=== PATIENT | female | born 1950 | race Caucasian/White ===

== ENCOUNTER → 2018-02-01 07:35 | Outpatient (CLI) | payer MEDICARE, OTHER, SELFPAY ==
[2018-02-01 11:26] LABS: Add Manual Diff / Slide Review NO; Basophils Percent Auto 0.1 % (0-2); Eosinophils Percent Auto 2.1 % (2-4); Hematocrit 41.5 % (36-46); Hemoglobin 13.7 g/dL (12.0-16.0); Lymphocytes Percent Auto 17.7 % (25-40); Mean Corpuscular HGB Conc 33.1 % (30-36); Mean Corpuscular Hemoglobin 28.1 PG (26-34); Mean Corpuscular Volume 84.8 fL (80-100); Monocytes Percent Auto 9.6 % (3-14); Neutrophils Absolute Auto 3900 /uL (3000-5900); Neutrophils Percent Auto 70.5 % (50-75); Platelet Count 258 X10^3/uL (150-400); Red Blood Cell Count 4.89 X10^6/uL (4.0-5.2); Red Cell Distribution Width 14.9 % (11.6-14.8); White Blood Cell Count 5.5 X10^3/uL (4.5-11.0)
[2018-02-01 11:39] LABS: Alanine Aminotransferase 48 IU/L (9-52); Albumin 4.1 g/dL (3.5-5.0); Albumin Globulin Ratio 1.5 (1.0-2.8); Alkaline Phosphatase 81 U/L (38-126); Aspartate Aminotransferase 37 IU/L (14-36); BUN Creatinine Ratio 18.6 (6-22); Bilirubin Total 0.5 mg/dL (0.2-1.3); Blood Urea Nitrogen 13 mg/dL (7-17); Calcium 9.3 mg/dL (8.4-10.2); Carbon Dioxide 28 mmol/L (22-32); Chloride 104 mmol/L (98-107); Cholesterol 221 mg/dL (140-199); Estimated Glomerular Filt Rate > 60.0 mL/min (>60); Globulin 2.8 g/dL (1.7-4.1); Glucose 85 mg/dL (80-110); HDL Cholesterol 51 mg/dL (40-60); HEMOLYSIS < 15 (0-50); LDL Cholesterol Calculated 151 mg/dL (<100); Potassium 3.7 mmol/L (3.4-5.1); Sodium 144 mmol/L (137-145); Total Protein 6.9 g/dL (6.3-8.2); Triglycerides 95 mg/dL (35-150)
[2018-02-01 12:06] LABS: Thyroid Stimulating Hormone 0.28 uIU/mL (0.47-4.68)
== END ==
PROVIDERS: PCP Family Medicine; Visit Provider Family Medicine
DX: E03.9 Hypothyroidism, unspecified (principal)
CPT/HCPCS: 36415; 80053; 80061; 84443; 85025

== ENCOUNTER → 2018-04-21 09:11 | Outpatient (CLI) | payer MEDICARE, OTHER, SELFPAY ==
[2018-04-21 09:51] LABS: Erythrocyte Sedimentation Rate 6 MM/HR (0-20)
[2018-04-21 09:54] LABS: C-Reactive Protein Quant < 0.5 mg/dL (<1.0)
[2018-04-21 10:32] LABS: TSH w/ Reflex to FT4 0.92 uIU/mL (0.47-4.68)
== END ==
PROVIDERS: Family Provider Family Medicine; PCP Family Medicine; Visit Provider Physician Assistant
DX: M26.69 Other specified disorders of temporomandibular joint (principal); E03.9 Hypothyroidism, unspecified
CPT/HCPCS: 36415; 84443; 85651; 86140

== ENCOUNTER 2018-09-17 10:02 | Emergency (ER) | payer MEDICARE, OTHER, SELFPAY ==
[2018-09-17 10:32] VITALS: BP 126/66; PULSE 58; RESP 18; TEMP 36.8; O2SAT 96
--- NOTE | 2018-09-17 11:54 | PC.NURSE ---
pt reports, has been loading the boat for a trip to [place]. yesterday with alot lifting,bending,twisting has methocarbimol meds dated 2017. now pt reports, lumbar pain, denies radiating pain or bowel/bladder issue. denies fever,vomiting. also has been doing gentle yoga.
--- NOTE | 2018-09-17 12:06 | ED.BACK ---
HPI - Back Pain/Injury <Michelle Alvarado PA-C - Last Filed: 09/17/18 15:50> General Chief Complaint: Back Pain/Injury Stated Complaint: Back spasms Time Seen by Provider: 09/17/18 12:06 Source: patient Limitations: no limitations History of Present Illness HPI Narrative: This 68-year-old female complains of low back pain. She has been loading there boat for a big trip to [place] and doing some heavy lifting. She states that she bent over yesterday and then felt strain and soreness when she strained back up. She states that she gets similar symptoms every couple of years, started taking leftover Robaxin and it does help her. She is also taking ibuprofen. She denies any weakness or paresthesia in her extremities. Denies any groin numbness, difficult to urinate, bowel changes. She denies any new rash or fever and feels that this is similar to her previous symptoms. Pain is across her low back, does not radiate down the extremities. Related Data Home Medications Medication Instructions Recorded Confirmed calcium carbonate-vitamin D3 1 tab PO #0 06/03/16 04/21/18 coQ10 (ubiquinol) [Active Q] 200 mg PO #0 06/03/16 04/21/18 Previous Rx's Medication Instructions Recorded varicella-zoster glycoE [id number]-[id number] 0.5 ml IM ONCE #1 each 02/02/18 adj(PF) 50 mcg/0.5 mL IM susp, kit levothyroxine 88 mcg tablet 88 mcg PO QAM #90 tab 07/13/18 lidocaine [Lidoderm] 2 patch TOP DAILY #30 each 09/17/18 methocarbamol [Robaxin] 500 mg PO Q6H PRN #40 tab 09/17/18 Allergies Allergy/AdvReac Type Severity Reaction Status Date / Time aspirin [ASPIRIN] Allergy Unknown Verified 04/21/18 08:18 surgical tape Allergy Unknown Uncoded 08/11/17 12:41 Review of Systems <TEMO Rowe Last Filed: 09/17/18 15:50> Review of Systems ROS Unobtainable: All systems reviewed & are unremarkable except as noted in HPI and below PFSH <TEMO Rowe Last Filed: 09/17/18 15:50> Medical History History of urinary incontinence (Chronic) Hypothyroidism (Chronic) Vertigo (Chronic ~1999) Vision disorder (Chronic) Chicken pox (Resolved) History of CT scan (Resolved ~04/2015) History of MRI (Resolved ~12/2009) History of MRI of brain and brain stem (Resolved ~12/2009) History of stress test (Resolved ~04/2015) Measles (Resolved) Mumps (Resolved) Sarcoidosis (Resolved ~2006) Surgical History Anesthesia (Resolved) Status post appendectomy (~04/1991) Status post biopsy (~04/2007) Status post colonoscopy (~04/2009) Status post endoscopy (~08/2003) Status post hysterectomy (~04/1991) Status post laparoscopy (~08/2004) Family History Father Heart disease Hypertension High cholesterol Stroke Diabetes mellitus Grandfather No problems noted. Grandmother No problems noted. Mother No problems noted. Grandmother No problems noted. Social History marital status: household members: spouse lives independently: Yes occupational status: other (retired) Smoking Status: Never smoker alcohol intake: current substance use type: does not use Social History marital status: household members: spouse lives independently: Yes occupational status: other (retired) Smoking Status: Never smoker alcohol intake: current substance use type: does not use Exam <Michelle Alvarado PA-C - Last Filed: 09/17/18 15:50> Narrative Exam Narrative: GENERAL APPEARANCE: Patient sitting comfortably, in no distress. PULMONARY: Lungs clear to auscultation bilaterally CV: Regular rhythm regular without murmur, normal S1 and S2, no S3 or S4 MUSCULOSKELETAL: No point tenderness over the lumbar spine. Mild tenderness across the mid to inferior lumbar musculature and SI areas bilaterally. She has trunk flexion to 60? with mild tenderness, near full trunk rotation and lateral bend with some and point tenderness. Normal sit:stand and gait. Lower extremity strength 5/5 bilateral hip flexors, knee extensors, foot plantar flexion. Negative modified straight leg raise NEUROLOGIC: Lower extremity sensation grossly intact Initial Vital Signs Initial Vital Signs: Vital Signs Temperature 98.3 F 09/17/18 10:32 Pulse Rate 58 L 09/17/18 10:32 Respiratory Rate 18 09/17/18 10:32 Blood Pressure 126/66 09/17/18 10:32 Pulse Oximetry 96 09/17/18 10:32 <Carolyn Mae DO - Last Filed: 09/17/18 18:54> Initial Vital Signs Initial Vital Signs: Vital Signs Temperature 98.3 F 09/17/18 10:32 Pulse Rate 58 L 09/17/18 10:32 Respiratory Rate 18 09/17/18 10:32 Blood Pressure 126/66 09/17/18 10:32 Pulse Oximetry 96 09/17/18 10:32 Course <Michelle Alvarado PA-C - Last Filed: 09/17/18 15:50> Vital Signs - 8 hr 09/17/18 12:29 Pulse Rate 58 L Respiratory Rate 18 Blood Pressure [Right Arm] 146/67 H Pulse Oximetry 100 <Carolyn Mae DO - Last Filed: 09/17/18 18:54> Vital Signs - 8 hr 09/17/18 12:29 Pulse Rate 58 L Respiratory Rate 18 Blood Pressure [Right Arm] 146/67 H Pulse Oximetry 100 Discharge Plan Departure Patient Disposition: Home Clinical Impression: Strain of lumbar region Qualifiers: Encounter type: initial encounter Qualified Code(s): S39.012A - Strain of muscle, fascia and tendon of lower back, initial encounter Discharge Date/Time: 09/17/18 12:32 Interventions: ED Discharge Assessment Last Done: 09/17/18 12:32 Instructions: DI for Low Back Pain, DI for Back Spasm, DI for Back Strain or Sprain Activity Restrictions/Additional Instructions: Please return or seek treatment while you are traveling if you have any acutely worsening symptoms such as inability to urinate or weakness in your extremities as we talked about. Otherwise, please continue the ibuprofen every 8 hours, or you can change to Aleve 1 tablet every 12 hours if that is easier. Continue the methocarbamol as needed, but do not drive as it can make you sleepy (you may want to try half tab during the day). I have also prescribed some lidocaine patches for you to try as you can wear these for 12 hours daily and they will make you sleepy. Have a fantastic voyage to [place]! Prescriptions: New methocarbamol [Robaxin] 500 mg tablet 500 mg PO Q6H PRN (Reason: back pain/spasm) Qty: 40 RF: 0 lidocaine [Lidoderm] 5 % adhesive patch,medicated 2 patch TOP DAILY Qty: 30 RF: 0 No Action calcium carbonate-vitamin D3 1,500 MG/200 IU tablet 1 tab PO Qty: 0 RF: 0 coQ10 (ubiquinol) [Active Q] 200 MG capsule 200 mg PO Qty: 0 RF: 0 levothyroxine 88 mcg tablet 88 mcg PO QAM Qty: 90 RF: 2 varicella-zoster gE-AS01B (PF) [Shingrix (PF)] 50 mcg/0.5 mL suspension for reconstitution 0.5 ml IM ONCE Qty: 1 RF: 1 Referrals: Meera Harris DO [Primary Care Provider] - <Carolyn Mae DO - Last Filed: 09/17/18 18:54> Cosign ED Attending Herminiaature Attestation: I was immediately available in the department for consultation. Documentation has been reviewed. I agree with assessment and plan.
[2018-09-17 12:29] VITALS: BP 146/67; PULSE 58; RESP 18; O2SAT 100
== END 2018-09-17 12:32 | disposition home or self-care (01) ==
PROVIDERS: Emergency Provider Internal Medicine; Family Provider Family Medicine; PCP Family Medicine
DX: S39.012A Strain of muscle, fascia and tendon of lower back, initial encounter (principal)
CPT/HCPCS: 99282; 99283

== ENCOUNTER → 2019-01-03 09:40 | Outpatient (CLI) | payer MEDICARE, OTHER, SELFPAY ==
--- NOTE | 2019-01-03 09:42 | DI.MG.S_ITS ---
BILATERAL DIGITAL SCREENING MAMMOGRAM 3D/2D WITH CAD: 01/03/2019 CLINICAL: Routine screening. Comparison is made to exams dated: 02/16/2017 mammogram - [facility], 06/05/2014 mammogram, and 05/22/2013 mammogram - [facility]. There are scattered fibroglandular elements in both breasts. Current study was also evaluated with a Computer Aided Detection (CAD) system. There are benign vascular calcifications in the right breast. No significant masses, calcifications, or other findings are seen in either breast. There has been no significant interval change. IMPRESSION: There is no mammographic evidence of malignancy. A 1 year screening mammogram is recommended. This exam was interpreted at Station ID: [id number]. NOTE: For mammograms, a report in lay terms will be sent to the patient. Approximately 15% of breast malignancies will not be visualized mammographically. In the management of a palpable breast mass, a negative mammogram must not discourage biopsy of a clinically suspicious lesion. Electronically Signed By: Kiarra tang/contreras:01/03/2019 11:33:39 letter sent: Normal Exam ACR BI-RADS Category 2: Benign Finding(s) [id number]
== END ==
PROVIDERS: PCP Family Medicine; Visit Provider Family Medicine
DX: Z12.31 Encounter for screening mammogram for malignant neoplasm of breast (principal)
CPT/HCPCS: 77063; 77067

== ENCOUNTER → 2019-02-07 08:24 | Outpatient (CLI) | payer MEDICARE, OTHER, SELFPAY ==
[2019-02-07 09:18] LABS: Add Manual Diff / Slide Review NO; Basophils Absolute Auto 0 /uL (0-100); Basophils Percent Auto 0.2 % (0-2); Eosinophils Absolute Auto 100 /uL (0-450); Eosinophils Percent Auto 2.5 % (2-4); Hematocrit 42.2 % (36-46); Hemoglobin 14.1 g/dL (12.0-16.0); Lymphocytes Absolute Auto 1300 /uL (1100-4500); Lymphocytes Percent Auto 24.2 % (25-40); Mean Corpuscular HGB Conc 33.5 % (30-36); Mean Corpuscular Hemoglobin 28.5 PG (26-34); Mean Corpuscular Volume 85.2 fL (80-100); Monocytes Absolute Auto 400 /uL (0-900); Monocytes Percent Auto 8.4 % (3-14); Neutrophils Absolute Auto 3400 /uL (1500-7000); Neutrophils Percent Auto 64.7 % (50-75); Platelet Count 234 X10^3/uL (150-400); Red Blood Cell Count 4.95 X10^6/uL (4.0-5.2); Red Cell Distribution Width 14.7 % (11.6-14.8); White Blood Cell Count 5.2 X10^3/uL (4.5-11.0)
[2019-02-07 09:50] LABS: Alanine Aminotransferase 40 IU/L (9-52); Albumin 4.2 g/dL (3.5-5.0); Albumin Globulin Ratio 1.4 (1.0-2.8); Alkaline Phosphatase 71 U/L (38-126); Aspartate Aminotransferase 36 IU/L (14-36); BUN Creatinine Ratio 18.6 (6-22); Bilirubin Total 0.5 mg/dL (0.2-1.3); Blood Urea Nitrogen 13 mg/dL (7-17); Calcium 9.9 mg/dL (8.4-10.2); Carbon Dioxide 30 mmol/L (22-32); Chloride 104 mmol/L (98-107); Cholesterol 206 mg/dL (140-199); Estimated Glomerular Filt Rate > 60.0 mL/min (>60); Globulin 3.1 g/dL (1.7-4.1); Glucose 104 mg/dL (80-110); HDL Cholesterol 54 mg/dL (40-60); HEMOLYSIS < 15 (0-50); LDL Cholesterol Calculated 133 mg/dL (<100); Potassium 4.4 mmol/L (3.4-5.1); Sodium 139 mmol/L (137-145); Total Protein 7.3 g/dL (6.3-8.2); Triglycerides 94 mg/dL (35-150)
[2019-02-07 10:21] LABS: Thyroid Stimulating Hormone 0.74 uIU/mL (0.47-4.68)
== END ==
PROVIDERS: PCP Family Medicine; Visit Provider Family Medicine
DX: E03.9 Hypothyroidism, unspecified (principal)
CPT/HCPCS: 36415; 80053; 80061; 84443; 85025

== ENCOUNTER 2019-03-07 17:18 | Emergency (ER) | payer MEDICARE, OTHER, SELFPAY ==
[2019-03-07 17:25] VITALS: BP 128/56; PULSE 53; RESP 15; TEMP 35.6; O2SAT 97; BMI 26.4
[2019-03-07] MEDS: ONDANSETRON 4 MG/2 ML INJ IV (17:37)
[2019-03-07] MEDS: SODIUM CHLORIDE 0.9% 1,000 ML 150 ML IV (17:37)
[2019-03-07 17:51] LABS: Add Manual Diff / Slide Review NO; Basophils Absolute Auto 0 /uL (0-100); Basophils Percent Auto 0.5 % (0-2); Eosinophils Absolute Auto 200 /uL (0-450); Eosinophils Percent Auto 2.3 % (2-4); Hematocrit 44.4 % (36-46); Hemoglobin 14.7 g/dL (12.0-16.0); Lymphocytes Absolute Auto 2100 /uL (1100-4500); Mean Corpuscular HGB Conc 33.2 % (30-36); Mean Corpuscular Hemoglobin 28.2 PG (26-34); Mean Corpuscular Volume 85.1 fL (80-100); Monocytes Absolute Auto 700 /uL (0-900); Monocytes Percent Auto 9.4 % (3-14); Neutrophils Absolute Auto 4800 /uL (1500-7000); Neutrophils Percent Auto 60.8 % (50-75); Platelet Count 260 X10^3/uL (150-400); Red Blood Cell Count 5.21 X10^6/uL (4.0-5.2); Red Cell Distribution Width 15.2 % (11.6-14.8); White Blood Cell Count 7.9 X10^3/uL (4.5-11.0)
[2019-03-07 18:00] VITALS: BP 124/54; PULSE 54; RESP 14; O2SAT 98
[2019-03-07 18:04] LABS: BUN Creatinine Ratio 26.7 (6-22); Blood Urea Nitrogen 16 mg/dL (7-17); Carbon Dioxide 25 mmol/L (22-32); Chloride 107 mmol/L (98-107); Estimated Glomerular Filt Rate > 60.0 mL/min (>60); Glucose 113 mg/dL (80-110); HEMOLYSIS 60 (0-50); Potassium 3.8 mmol/L (3.4-5.1); Sodium 141 mmol/L (137-145)
[2019-03-07] MEDS: diazePAM 10 MG/2 ML SYRINGE 2 MG IV (18:08)
[2019-03-07 18:16] LABS: Troponin I < 0.012 ng/mL (0.01-0.034)
--- NOTE | 2019-03-07 18:27 | ED_ITS ---
HPI - Dizziness <ANA CRISTINA Holt - Last Filed: 03/07/19 20:31> General Chief Complaint: Dizziness Stated Complaint: DIZZY Time Seen by Provider: 03/07/19 17:36 Source: patient Mode of arrival: Wheelchair Limitations: no limitations History of Present Illness HPI Narrative: This is a 68-year-old female, nonsmoker, who presents to ED with significant other with chief complain of vertigo, spinning sensation with vomiting. Patient felt starting onset of intermittent vertigo on Wednesday and and states she can't get rid of with her routine medication meclizine 0.5 tab of 25mg. Patient states when she is in supine position the dizziness gets better and gets worse with moving her head. The patient had headache a couple of days ago but this has resolved. Patient denies recent ear pain, URI symptoms. Patient denies limb weakness, speech difficulty, vision change, dysphagia, f ever. Her spouse states patient had similar severe vertigo about 5 and 10 years ago which she was evaluated in emergency room. Related Data Home Medications Medication Instructions Recorded Confirmed calcium carbonate-vitamin D3 1 tab PO #0 06/03/16 02/13/19 coQ10 (ubiquinol) [Active Q] 200 mg PO #0 06/03/16 02/13/19 Previous Rx's Medication Instructions Recorded varicella-zoster gE-AS01B (PF) 50 0.5 ml IM ONCE #1 each 02/02/18 mcg/0.5 mL IM susp, kit levothyroxine 88 mcg tablet 88 mcg PO QAM #90 tab 07/13/18 lidocaine [Lidoderm] 2 patch TOP DAILY #30 each 09/17/18 methocarbamol [Robaxin] 500 mg PO Q6H PRN #40 tab 09/17/18 meclizine 12.5 - 25 mg PO TID-QID PRN #14 tab 03/07/19 ondansetron 4 mg PO Q6-8H PRN #10 tab 03/07/19 Allergies Allergy/AdvReac Type Severity Reaction Status Date / Time aspirin [ASPIRIN] Allergy Unknown Verified 03/07/19 17:30 surgical tape Allergy Unknown Uncoded 08/11/17 12:41 Review of Systems <ANA CRISTINA Holt - Last Filed: 03/07/19 20:31> Review of Systems Narrative: General: Denies fever, chills, fatigue, malaise, sweats. HEENT: Denies sinus pain, ear pain, sore throat, difficulty swallowing, dizziness. Respiratory: Denies dyspnea, cough, wheezing, hemoptysis, sputum. Cardiovascular: Denies chest pain, palpitations, orthopnea, edema. Gastrointestinal: Reports nausea and vomiting. Denies abdominal pain, diarrhea, constipation, melena. : Denies dysuria, frequency, incontinence, hematuria, urinary retention. Musculoskeletal: Denies weakness, joint pain or bony pain. Skin: Denies rash, skin lesions, or other. Neurologic: Reports dizziness and spinning sensation. Denies weakness, headache, numbness, change in speech, confusion, seizures, incoordination. Psychiatric: No concerning psychosocial issues. 12-point review of systems is negative except for those stated above. Patient History <ANA CRISTINA Holt - Last Filed: 03/07/19 20:31> Medical History Chicken pox (Resolved) History of CT scan (Resolved ~04/2015) History of MRI (Resolved ~12/2009) History of MRI of brain and brain stem (Resolved ~12/2009) History of stress test (Resolved ~04/2015) History of urinary incontinence (Chronic) Hypothyroidism (Chronic) Measles (Resolved) Mumps (Resolved) Sarcoidosis (Resolved ~2006) Vertigo (Chronic ~1999) Vision disorder (Chronic) Surgical History Anesthesia (Resolved) Status post appendectomy (~04/1991) Status post biopsy (~04/2007) Status post colonoscopy (~04/2009) Status post endoscopy (~08/2003) Status post hysterectomy (~04/1991) Status post laparoscopy (~08/2004) Family History Father Heart disease Hypertension High cholesterol Stroke Diabetes mellitus Grandfather No problems noted. Grandmother No problems noted. Mother No problems noted. Grandmother No problems noted. Social History marital status: household members: spouse lives independently: Yes occupational status: other (retired) Smoking Status: Never smoker alcohol intake: current substance use type: does not use alcohol intake frequency: holidays/special occasions only Substance Use Type: does not use Exam <Herson ANA CRISTINA Erickson - Last Filed: 03/07/19 20:31> Narrative Exam Narrative: GEN: Alert, oriented x 3, well nourished, and in moderate distress as evidence by lying and right lateral side with eyes covered with her close. Head: Normal cephalic, atraumatic. No scalp or temporal tenderness, palpable mass or rash. EYES: Pupils are equal, round, and reactive to light and accommodation. Extraocular muscles are intact bilaterally but with nystagmus. There is no subconjunctival hemorrhage, exudate and sclera non-icteric. ENT: Bilateral auditory canals and tympanic membranes clear. Hearing grossly intact. Nose without bleeding, purulent discharge or deviation. Facial sinuses nontender to palpate. Mucous membrane moist, no mucosal lesion. Throat without erythema, tonsillar hypertrophy or exudate. Uvula in midline, airway patent. Neck: Trachea in midline. No JVD, non-tender without lymphadenopathy. No masses or thyroid megaly. Supple, non-tender and no meningeal signs. CARDIAC: Normal regular rate and rhythm without murmurs, gallops, or rubs. No chest wall tenderness. No peripheral edema, cyanosis or pallor. Capillary refill is less than 2 seconds. RESPIRATORY: Lungs are clear to auscultate bilaterally. No cough, wheezes, rales, or rhonchi. No stridor, respiratory distress, increase work of breathing, or accessary muscle used. ABD: Abdomen soft, nontender and non-distended. No guarding or rebound tenderness to palpate. Bowel sounds are normal in all 4 quadrants. There is no palpable masses or organomegaly. EXT: Full painless ROM of all extremities with no loss of sensation, strength, effusion or edema. SKIN: Warm, dry, normal color for patient. No erythema, lesions or rash over visible areas. BACK: Nontender without deformity or crepitance. No flank tenderness. NEUROLOGICAL: Alert and oriented to place, time and person. Sensation and motor function intact bilaterally. No facial droops, dysphasia. PSYCHIATRIC: Good judgement and reason, without hallucinations, abnormal affect or abnormal behaviors during the examination. Initial Vital Signs Initial Vital Signs: Vital Signs Temperature 96.0 F L 03/07/19 17:25 Pulse Rate 53 L 03/07/19 17:25 Respiratory Rate 15 03/07/19 17:25 Blood Pressure 128/56 L 03/07/19 17:25 Pulse Oximetry 97 03/07/19 17:25 <Evaristo Tse DO - Last Filed: 03/07/19 20:59> Initial Vital Signs Initial Vital Signs: Vital Signs Temperature 96.0 F L 03/07/19 17:25 Pulse Rate 53 L 03/07/19 17:25 Respiratory Rate 15 03/07/19 17:25 Blood Pressure 128/56 L 03/07/19 17:25 Pulse Oximetry 97 03/07/19 17:25 Scores <ANA CRISTINA Holt Last Filed: 03/07/19 20:31> GCS David coma scale eye opening: Spontaneous David coma scale verbal response: Orientated [place] coma scale motor response: Obey commands David coma scale total score: 15 NIH Stroke Scale Level of Conciousness: Alert, keenly responsive Ask month/age: Answers both questions correctly. Open/close eyes, close hand: Performs both tasks correctly Best gaze horizontal: Normal Visual martini: No visual loss Facial palsy: Normal symetrical movement Left arm drift: No drift for full 10 sec Right arm drift: No drift for full 10 sec Left leg drift: No drift for full 10 sec Right leg drift: No drift for full 10 sec Limb ataxia: Absent Sensory on face/arms/legs: Normal, no sensory loss Best language: No aphasia, normal Dysarthria: Normal Extinction or inattention: No abnormality Total NIH Stroke scale score: 0 Course <ANA CRISTINA Holt Last Filed: 03/07/19 20:31> Orders Ordered: ED Orders 03/07/19 17:45 Basic Metabolic Panel Stat Complete Blood Count AUTO DIFF Stat Troponin I Stat 03/07/19 17:54 EKG-12 Lead Stat Discontinued Medications Diazepam (Valium) 2 mg IV NOW ONE Stop: 03/07/19 17:49 Last Admin: 03/07/19 18:08 Dose: 2 mg Documented by: NIMESH Sodium Chloride (Normal Saline 0.9%) 1,000 mls @ 150 mls/hr IV CONT KEELY Last Infusion: 03/07/19 20:24 Dose: 0 mls/hr Documented by: Admin: 03/07/19 17:37 Dose: 150 mls/hr Documented by: BROWN Meclizine HCl (Antivert) 25 mg PO NOW ONE Stop: 03/07/19 18:53 Last Admin: 03/07/19 19:05 Dose: 25 mg Documented by: NIMESH Ondansetron HCl (Zofran) 4 mg IV NOW ONE Stop: 03/07/19 17:34 Last Admin: 03/07/19 17:37 Dose: 4 mg Documented by: BROWN Reevaluation(s) Reevaluation #1: dizziness improved a bit and is able to keep her eyes open Time: 18:27 Reevaluation #2: The patient was able to ambulate in stable gaits with a stand by assistance. Time: 20:17 Vital Signs Vital signs: Vital Signs - 8 hr 03/07/19 17:25 03/07/19 18:00 03/07/19 18:30 Temperature 96.0 F L Pulse Rate 53 L 54 L Respiratory Rate 15 14 12 Blood Pressure 128/56 L Blood Pressure [Left Arm] 124/54 L 113/43 L Pulse Oximetry 97 98 98 03/07/19 20:24 Temperature Pulse Rate 60 Respiratory Rate 16 Blood Pressure 118/53 L Blood Pressure [Left Arm] Pulse Oximetry 94 <Evaristo Tse DO - Last Filed: 03/07/19 20:59> Orders Ordered: ED Orders 03/07/19 17:45 Basic Metabolic Panel Stat Complete Blood Count AUTO DIFF Stat Troponin I Stat 03/07/19 17:54 EKG-12 Lead Stat Discontinued Medications Diazepam (Valium) 2 mg IV NOW ONE Stop: 03/07/19 17:49 Last Admin: 03/07/19 18:08 Dose: 2 mg Documented by: NIMESH Sodium Chloride (Normal Saline 0.9%) 1,000 mls @ 150 mls/hr IV CONT KEELY Last Infusion: 03/07/19 20:24 Dose: 0 mls/hr Documented by: Admin: 03/07/19 17:37 Dose: 150 mls/hr Documented by: BROWN Meclizine HCl (Antivert) 25 mg PO NOW ONE Stop: 03/07/19 18:53 Last Admin: 03/07/19 19:05 Dose: 25 mg Documented by: NIMESH Ondansetron HCl (Zofran) 4 mg IV NOW ONE Stop: 03/07/19 17:34 Last Admin: 03/07/19 17:37 Dose: 4 mg Documented by: BROWN Vital Signs Vital signs: Vital Signs - 8 hr 03/07/19 17:25 03/07/19 18:00 03/07/19 18:30 Temperature 96.0 F L Pulse Rate 53 L 54 L Respiratory Rate 15 14 12 Blood Pressure 128/56 L Blood Pressure [Left Arm] 124/54 L 113/43 L Pulse Oximetry 97 98 98 03/07/19 20:24 Temperature Pulse Rate 60 Respiratory Rate 16 Blood Pressure 118/53 L Blood Pressure [Left Arm] Pulse Oximetry 94 MDM - Dizziness <Herson Sana-ANA CRISTINA Zamorano - Last Filed: 03/07/19 20:31> Differential Diagnosis Differential diagnosis: Likely benign paroxysmal positional vertigo, cerebrovascular accident and transient cerebral ischemia Medical Records Attestation: I reviewed the patient's medical records. Lab Data Attestation: I reviewed the patient's lab results. Result diagrams: 03/07/19 17:45 03/07/19 17:45 Labs: Lab Results 03/07/19 03/07/19 Range/Units 17:45 17:45 WBC 7.9 (4.5-11.0) X10^3/uL RBC 5.21 H (4.0-5.2) X10^6/uL Hgb 14.7 (12.0-16.0) g/dL Hct 44.4 (36-46) % MCV 85.1 (80-100) fL MCH 28.2 (26-34) PG MCHC 33.2 (30-36) % RDW 15.2 H (11.6-14.8) % Plt Count 260 (150-400) X10^3/uL Neut % (Auto) 60.8 (50-75) % Lymph % (Auto) 27.0 (25-40) % [place] % (Auto) 9.4 (3-14) % Eos % (Auto) 2.3 (2-4) % Baso % (Auto) 0.5 (0-2) % Neut # (Auto) 4800 (6069-6932) /uL Lymph # (Auto) 2100 (6483-8735) /uL [place] # (Auto) 700 (0-900) /uL Eos # (Auto) 200 (0-450) /uL Baso # (Auto) 0 (0-100) /uL Sodium 141 (137-145) mmol/L Potassium 3.8 (3.4-5.1) mmol/L Chloride 107 (98-107) mmol/L Carbon Dioxide 25 (22-32) mmol/L BUN 16 (7-17) mg/dL Creatinine 0.60 (0.52-1.04) mg/dL Estimated GFR > 60.0 (>60) mL/min BUN/Creatinine Ratio 26.7 H (6-22) Glucose 113 H (80-110) mg/dL Calcium 10.0 (8.4-10.2) mg/dL Troponin I < 0.012 (0.01-0.034) ng/mL Point of Care Testing Glucose POC 109 ECG Data Attestation: I personally reviewed and interpreted this ECG as follows: Prior ECG tracings: not available for review Interpretation: Sinus bradycardia rate at 53. Normal [place]. Minimal ST depression V3-V5, no ST elevation. MDM Narrative Medical decision making narrative: This is a 68-year-old female has history of severe vertigo about 5 and 10 years ago presents to ED with progressively worsening vertigo sensation onset 4 days ago with nausea/vomiting. She manages her symptoms with meclizine 12.5 mg usually. Patient denies constitutional symptoms, nuchal rigidity. She was treated with IV Valium and Zofran with IVF. She felt improved with vertigo symptoms. Additional meclizine 25 mg tab was administered and patient was able to ambulate. After her vertigo symptoms improved reassessed neuro exam showed normal findings with NIHSS of 0. Patient discharged to home with a prescription of meclizine and Zofran and advised to follow up with PCP with possible a referral to physical therapist. Patient verbalized understanding and agrees with the treatment plan. <Evaristo Tse, - Last Filed: 03/07/19 20:59> Lab Data Labs: Lab Results 03/07/19 03/07/19 Range/Units 17:45 17:45 WBC 7.9 (4.5-11.0) X10^3/uL RBC 5.21 H (4.0-5.2) X10^6/uL Hgb 14.7 (12.0-16.0) g/dL Hct 44.4 (36-46) % MCV 85.1 (80-100) fL MCH 28.2 (26-34) PG MCHC 33.2 (30-36) % RDW 15.2 H (11.6-14.8) % Plt Count 260 (150-400) X10^3/uL Neut % (Auto) 60.8 (50-75) % Lymph % (Auto) 27.0 (25-40) % [place] % (Auto) 9.4 (3-14) % Eos % (Auto) 2.3 (2-4) % Baso % (Auto) 0.5 (0-2) % Neut # (Auto) 4800 (2458-4451) /uL Lymph # (Auto) 2100 (9770-1661) /uL [place] # (Auto) 700 (0-900) /uL Eos # (Auto) 200 (0-450) /uL Baso # (Auto) 0 (0-100) /uL Sodium 141 (137-145) mmol/L Potassium 3.8 (3.4-5.1) mmol/L Chloride 107 (98-107) mmol/L Carbon Dioxide 25 (22-32) mmol/L BUN 16 (7-17) mg/dL Creatinine 0.60 (0.52-1.04) mg/dL Estimated GFR > 60.0 (>60) mL/min BUN/Creatinine Ratio 26.7 H (6-22) Glucose 113 H (80-110) mg/dL Calcium 10.0 (8.4-10.2) mg/dL Troponin I < 0.012 (0.01-0.034) ng/mL Point of Care Testing Glucose POC 109 Discharge Plan Departure Patient Disposition: Home Clinical Impression: Vertigo Discharge Date/Time: 03/07/19 20:25 Instructions: DI for Vertigo Activity Restrictions/Additional Instructions: You have been diagnosed with [dizziness likely vertigo with a history of vertigo. You felt improved after Valium and meclizine treatment in ED. Nausea had improved with Zofran.]. What to do: *Take your medications as directed. You're prescription has been transmitted to [facility]. You can take meclizine 0.5 to 1 tab as needed for dizziness and Zofran for nausea. *Follow up with your primary care provider in 2-3 days, call for an appointment. Let them know you were seen in the ED and that we asked you to be seen in follow up. You may request a referral to physical therapist if vertigo persists. *Return to ED if you have any new, worsening, or concerning symptoms, such as [limb weakness, speech difficulty, vision change, chest pain, breathing difficulty, unable to tolerate medications, or any acute concerns]. Prescriptions: New meclizine 25 mg tablet 12.5 - 25 mg PO TID-QID PRN (Reason: dizziness) Qty: 14 RF: 0 ondansetron 4 mg tablet,disintegrating 4 mg PO Q6-8H PRN (Reason: nausea and vomiting) Qty: 10 RF: 0 No Action calcium carbonate-vitamin D3 1,500 MG/200 IU tablet 1 tab PO Qty: 0 RF: 0 coQ10 (ubiquinol) [Active Q] 200 MG capsule 200 mg PO Qty: 0 RF: 0 levothyroxine 88 mcg tablet 88 mcg PO QAM Qty: 90 RF: 2 varicella-zoster gE-AS01B (PF) [Shingrix (PF)] 50 mcg/0.5 mL suspension for reconstitution 0.5 ml IM ONCE Qty: 1 RF: 1 methocarbamol [Robaxin] 500 mg tablet 500 mg PO Q6H PRN (Reason: back pain/spasm) Qty: 40 RF: 0 lidocaine [Lidoderm] 5 % adhesive patch,medicated 2 patch TOP DAILY Qty: 30 RF: 0 Referrals: Meera Harris DO [Primary Care Provider] - <Evaristo Tse DO - Last Filed: 03/07/19 20:59> Sign Out Provider Sign Out Attestation: Dr Tse Co-Sign Statement: I was available for consultation during this patient's emergency department visit. This chart is signed by myself for administrative purposes only. I did not have direct contact with this patient during this visit. They were seen independently by the APC.
[2019-03-07 18:30] VITALS: BP 113/43; RESP 12; O2SAT 98
[2019-03-07] MEDS: MECLIZINE HCL 12.5 MG TABLET 25 MG PO (19:05)
[2019-03-07 20:24] VITALS: BP 118/53; PULSE 60; RESP 16; O2SAT 94
== END 2019-03-07 20:25 | disposition home or self-care (01) ==
PROVIDERS: Emergency Medicine; Emergency Provider Nurse Practitioner Family; PCP Family Medicine
DX: R42 Dizziness and giddiness (principal); R00.1 Bradycardia, unspecified
CPT/HCPCS: 36415; 80048; 82962; 84484; 85025; 93005; 93010; 96361; 96374; 96375; 99283; 99284; J2405; J3360

== ENCOUNTER 2019-03-09 11:47 | Day surgery (SDC) | payer MEDICARE, OTHER, SELFPAY ==
[2019-03-09] MEDS: SODIUM CHLORIDE 0.9% 1,000 ML 200 ML IV (12:25)
[2019-03-09 12:26] VITALS: BP 124/61; PULSE 59; RESP 16; TEMP 36.7; O2SAT 96; BMI 25.4
--- NOTE | 2019-03-09 12:59 | PM.HP.1 ---
History of Present Illness History of Present Illness Date Patient Seen: 03/09/19 Time Patient Seen: 12:59 Chief complaint: [id number] SCREENING COLONOSCOPY Narrative: Patient presents for colorectal screening. Then a previous colonoscopy which was reportedly negative 10 years ago.. On further history denies any recent gastrointestinal symptoms. No nausea, vomiting, abdominal pain, loss of appetite, unexplained weight loss, change in bowel habits, diarrhea, constipation, melena, hematochezia, or bright red blood per rectum. Patient History Medical History Chicken pox (Resolved) History of CT scan (Resolved ~04/2015) History of MRI (Resolved ~12/2009) History of MRI of brain and brain stem (Resolved ~12/2009) History of stress test (Resolved ~04/2015) History of urinary incontinence (Chronic) Hypothyroidism (Chronic) Measles (Resolved) Mumps (Resolved) Sarcoidosis (Resolved ~2006) Vertigo (Chronic ~1999) Vision disorder (Chronic) Surgical History Anesthesia (Resolved) Status post appendectomy (~04/1991) Status post biopsy (~04/2007) Status post colonoscopy (~04/2009) Status post endoscopy (~08/2003) Status post hysterectomy (~04/1991) Status post laparoscopy (~08/2004) Family & Social History Family History Father Heart disease Hypertension High cholesterol Stroke Diabetes mellitus Grandfather No problems noted. Grandmother No problems noted. Mother No problems noted. Grandmother No problems noted. Social History: household members spouse lives independently Yes Tobacco & Substance use: Smoking Status Never smoker alcohol intake current alcohol intake frequency holiday/special occasion Substance Use Type does not use Meds Home Medications and Allergies Home Medications Medication Instructions Recorded Confirmed Type Active Q 200 mg PO DAILY #0 06/03/16 03/09/19 History calcium carbonate-vitamin D3 1 tab PO DAILY #0 06/03/16 03/09/19 History levothyroxine 88 mcg tablet 88 mcg PO QAM #90 tab 07/13/18 03/09/19 Rx methocarbamol [Robaxin] 500 mg PO Q6H PRN #40 tab 09/17/18 03/09/19 Rx meclizine 12.5 - 25 mg PO TID-QID PRN #14 tab 03/07/19 03/09/19 Rx ondansetron 4 mg PO Q6-8H PRN #10 tab 03/07/19 03/09/19 Rx Allergies Allergy/AdvReac Type Severity Reaction Status Date / Time aspirin [ASPIRIN] Allergy Unknown Verified 03/09/19 12:12 adhesive tape AdvReac Intermediate Blister Verified 03/09/19 12:12 Review of Systems Review of Systems ROS Unobtainable: All systems reviewed & are unremarkable except as noted in HPI and below Exam Vital Signs (past 8 hours): - 03/09/19 12:26 Temperature 98.0 F Pulse Rate 59 L Respiratory Rate 16 Blood Pressure 124/61 Pulse Oximetry 96 Oxygen Delivery Method Room Air Narrative Exam Narrative: General-no acute distress, well nourished HEENT-moist mucous membranes, no scleral icterus Neck-supple, no lymphadenopathy Chest- non labored respirations, clear to auscultation bilaterally Cardiac-regular rate no peripheral edema Abdomen-soft, nontender, non distended Extremities-warm, well perfused Neurological-alert and oriented, no focal deficits Assessment & Plan Assessment and plan (1) Screening for colon cancer: Current visit: Yes Status: Acute Assessment & Plan narrative: The patient requires colorectal screening and colonoscopy is recommended. Technical details were discussed. Risks, benefits, alternatives explained. Risks including but not limited to myocardial infarction, aspiration, bleeding, pain, missed lesion, incomplete examination, need for further radiographic studies, colonic perforation, and need for major abdominal surgery were discussed. All questions were answered to their satisfaction, and they are in agreement with this plan.
--- NOTE | 2019-03-09 13:31 | PM.OP.ENDO ---
Operative Date/Time/Diagnoses Date of procedure: 03/09/19 Time of procedure: 13:31 Pre-op diagnosis: Screening colonoscopy Post-op diagnosis: same Procedure & Clinicians Study performed: Colonoscopy Same procedure as scheduled: Yes Indications: This is a 68-year-old female with the colonoscopy 10 years ago that was normal presents for routine screening. Surgeon: Bishop Arita Procedure Notes SCOAP/Timeout: Performed Procedure in detail: Patient placed in left lateral decubitus position. Time out was performed. Procedural sedation was administered with Versed and Fentanyl. A rectal exam demonstrated external hemorrhoids no internal masses. Colonoscopy scope was placed into the rectum and advanced through the colon to the cecum. The ileocecal valve was identified. The scope was then slowly withdrawn examining colon thoroughly in all directions. The colonoscopy was notable for the following 1. Sigmoid diverticulosis 2. Internal hemorrhoids grade 1-2 3. Scope withdrawal time: 10 Sedation minutes: 24 Findings: diverticulosis and internal hemorrhoids Specimen(s): none sent Complications: none Impression: diverticulosis Post-procedure Recommendations: Colonscopy in 10 years Disposition: same day surgery
[2019-03-09] MEDS: MIDAZOLAM 5 MG/5 ML VIAL IV (13:32)
[2019-03-09] MEDS: fentaNYL 250 MCG/5 ML INJ IV (13:32)
[2019-03-09 13:33] VITALS: BP 133/62; PULSE 78; RESP 15; TEMP 35.9; O2SAT 94
[2019-03-09 13:39] VITALS: BP 113/57; PULSE 72; RESP 13; O2SAT 94
[2019-03-09 13:42] VITALS: BP 120/57; PULSE 73; RESP 13; O2SAT 96
[2019-03-09 13:49] VITALS: BP 112/55; PULSE 70; RESP 11; TEMP 36.3; O2SAT 98
[2019-03-09 14:08] VITALS: BP 117/59; PULSE 57; TEMP 36.5; O2SAT 99
== END 2019-03-09 14:10 | disposition home or self-care (01) ==
PROVIDERS: PCP Family Medicine; Visit Provider Surgery
PROC: 0DJD8ZZ Inspection of Lower Intestinal Tract, Via Natural or Artificial Opening Endoscopic (ICD-10-PCS; CPT 45378; principal; 2019-03-09 13:00)
DX: Z12.11 Encounter for screening for malignant neoplasm of colon (principal); K57.30 Diverticulosis of large intestine without perforation or abscess without bleeding; K64.0 First degree hemorrhoids
CPT/HCPCS: G0121; 99152; J2250; J3010

== ENCOUNTER → 2019-03-14 09:46 | Outpatient (CLI) | payer MEDICARE, OTHER, SELFPAY | PROVIDERS: PCP Family Medicine; Visit Provider Family Medicine | DX: M85.88 Other specified disorders of bone density and structure, other site (principal); Z78.0 Asymptomatic menopausal state; E03.9 Hypothyroidism, unspecified | CPT/HCPCS: 77080 ==

== ENCOUNTER 2019-10-20 06:48 | Emergency (ER) | payer MEDICARE, OTHER, SELFPAY ==
[2019-10-20 07:02] VITALS: BP 156/85; PULSE 82; RESP 16; TEMP 37; O2SAT 99; BMI 27.3
[2019-10-20] MEDS: SODIUM CHLORIDE 0.9% 1,000 ML 1000 ML IV (07:42)
[2019-10-20] MEDS: PANTOPRAZOLE 40 MG VIAL IV (07:42)
[2019-10-20] MEDS: MAG HYDROX/ALUMINUM/SIMETH SUS 20 ML, LIDOCAINE VISCOUS 2% 15 ML PO (07:42)
--- NOTE | 2019-10-20 07:43 | ED.ABDPAIN ---
HPI - Abdominal Pain General Chief Complaint: Abdominal Pain Stated Complaint: abdominal pain Time Seen by Provider: 10/20/19 06:50 Mode of arrival: Family Vehicle History of Present Illness HPI narrative: CC: right and left upper quadrant abdominal pain HPI: The patient is a 69-year-old female who was initially seen by Dr. esteves and advanced triage orders ordered. The patient describes a right and left upper quadrant abdominal pain that radiates around to her back. The pain is worse with lying down. The last 3 nights she has been unable to sleep because of severe pain and discomfort. The pain is been as bad as 10/10 in intensity but most of the time it is a 7 to 8/10. The patient states that she is unable to take a deep breath because the pain and discomfort. Sometimes the pain is worse with coughing but she has not had a significant cough. The patient states that she has been having a mild constipation she took a laxative yesterday and she had a bowel movement early this morning without blood or melena. She is not passing any gas. She has had a recent colonoscopy and was told that she had diverticulosis. She denies a history of Crohn's disease ulcerative colitis or irritable bowel syndrome. She has had an appendectomy but but no cholecystectomy in no history of pancreatitis. Her pain in her abdomen radiates straight through to her back. She denies a history of diabetes mellitus hypertension stroke myocardial infarction. She does not smoke cigarettes she periodically drinks alcohol and occasionally chews marijuana products for back pain. Related Data Home Medications Medication Instructions Recorded Confirmed Active Q 200 mg PO DAILY #0 06/03/16 10/20/19 calcium carbonate-vitamin D3 1 tab PO DAILY #0 06/03/16 10/20/19 Previous Rx's Medication Instructions Recorded methocarbamol [Robaxin] 500 mg PO Q6H PRN #40 tab 09/17/18 meclizine 25 mg tablet 12.5 - 25 mg PO TID-QID PRN #60 tab 03/24/19 levothyroxine 88 mcg tablet 88 mcg PO DAILY #90 tab 04/03/19 cephalexin [Keflex] 500 mg PO TID #15 cap 10/20/19 dicyclomine 20 mg PO TID #15 tab 10/20/19 pantoprazole [Protonix] 40 mg PO DAILY #14 tab 10/20/19 sucralfate [Carafate] 10 ml PO QID #210 ml 10/20/19 Allergies Allergy/AdvReac Type Severity Reaction Status Date / Time aspirin [ASPIRIN] Allergy Unknown Verified 10/20/19 08:37 adhesive tape AdvReac Intermediate Blister Verified 10/20/19 08:37 Review of Systems Review of Systems Narrative: REVIEW OF SYSTEMS: CONSTITUTIONAL: No fever chills or sweats NEUROLOGICAL: No headache dizziness numbness tingling paresthesias anesthesia is presents or paralysis EENT: No sore throat or difficulty in swallowing. CARDIO-PULMONARY: No significant chest pain mild cough no shortness of breath states that she is unable to take to cough or take a deep breath because of pain and discomfort in her upper abdomen GASTROINTESTINAL: Abdominal pain as described. No significant nausea vomiting GENITAL URINARY: The patient states that she has decreased urination with increased urgency small volumes and frequency. MUSCULOSKELETAL/ RHEUMATOLOGICAL: The patient complains of back pain which is a radiation of the pain from her abdomen. DERMATOLOGICAL: No rash or bruising noted Patient History Medical History Chicken pox (Resolved) History of CT scan (Resolved ~04/2015) History of MRI (Resolved ~12/2009) History of MRI of brain and brain stem (Resolved ~12/2009) History of stress test (Resolved ~04/2015) History of urinary incontinence (Chronic) Hypothyroidism (Chronic) Measles (Resolved) Mumps (Resolved) Sarcoidosis (Resolved ~2006) Vertigo (Chronic ~1999) Vision disorder (Chronic) Surgical History Anesthesia (Resolved) Status post appendectomy (~04/1991) Status post biopsy (~04/2007) Status post colonoscopy (~04/2009) Status post endoscopy (~08/2003) Status post hysterectomy (~04/1991) Status post laparoscopy (~08/2004) Family History Father Heart disease Hypertension High cholesterol Stroke Diabetes mellitus Grandfather No problems noted. Grandmother No problems noted. Mother No problems noted. Grandmother No problems noted. Social History marital status: household members: spouse lives independently: Yes occupational status: other (retired) Smoking Status: Never smoker alcohol intake: current substance use type: does not use Smoking Status: Never smoker alcohol intake frequency: holidays/special occasions only Substance Use Type: does not use Exam Narrative Exam Narrative: PHYSICAL EXAM: CONSTITUTIONAL: Awake, Alert, Oriented, Coherent, Cooperative in NAD. Does not appear toxic or ill. Sitting upright conversant HEAD: AT/NC EENT: PERRL, FROM of eyes, no discharge,. NOSE:No epistaxis or nasal drainage MOUTH:Oral mucosa is moist and pink, posterior pharynx is without erythema or exudate. NECK: Supple, no obvious JVD, Trachea is midline without stridor, no palpable LN. SPINE: Palpationof the cervical, Thoracic, Lumbar or Sacral spine reveals no gross deformity or tenderness. No CVA tenderness. No tenderness to palpation over the SI joints or sciatic notch THORAX: No deformity, retractions, chest wall tenderness. LUNGS: Clear, symmetrical breath sounds without respiratory distress. HEART: Normal heart tones, regular rhythm and rate without murmur. ABDOMEN: Soft, tender in the right and left upper quadrants with mild guarding. Most tender in the epigastrium. No palpable organomegaly. No rebound. EXTREMITIES: No edema, deformity, tenderness or cyanosis. SKIN: No rash, bruising, petechiae or purpura. NEURO: Awake, alert, oriented, conversive, cranial nerves II-XII are symmetrical , moves all 4 extremities and is ambulatory. MENTAL HEALTH: Does not appear anxious or depressed. Initial Vital Signs Initial Vital Signs: Vital Signs Temperature 98.6 F 10/20/19 07:02 Pulse Rate 82 10/20/19 07:02 Respiratory Rate 16 10/20/19 07:02 Blood Pressure 156/85 H 10/20/19 07:02 Pulse Oximetry 99 10/20/19 07:02 Course Course Course Narrative: 1002: The patient's chest x-ray reveals a right lower lobe infrahilar opacities are nonspecific and the differential includes developing pneumonia or atelectasis. CT of the patient's abdomen reveals no hydronephrosis, nephrolithiasis, hydroureter, or ureterolithiasis. 2. No acute intra-abdominal findings. 3. Aortic atherosclerosis. The patient after CT was obtained was feeling much better after she had been given a GI cocktail and pantoprazole. I believe the patient is primarily having probably acute gastritis with possible esophageal spasm. The patient's CT scan of the bases of the lung did not confirm that she had a pneumonia. Or the infiltrates identified on chest x-ray. She will be discharged home on pantoprazole, Carafate, and Bentyl and advised to return if she develops worsening pain or discomfort. She will be advised to follow-up with her primary care physician to be referred to a senior environmental practice leader for possible EGD if her symptoms persist Orders Ordered: Discontinued Medications Cephalexin HCl (Keflex) 500 mg PO NOW ONE Stop: 10/20/19 10:14 Last Admin: 10/20/19 10:22 Dose: 500 mg Documented by: ALL Cox Hydrox/Mg Hydrox/Simethicone 20 ml/ Lidocaine HCl 15 ml 0 ml PO NOW ONE Stop: 10/20/19 06:59 Last Admin: 10/20/19 07:42 Dose: 35 ml Documented by: SHARON Dicyclomine HCl (Bentyl) 20 mg PO NOW ONE Stop: 10/20/19 07:58 Last Admin: 10/20/19 08:19 Dose: 20 mg Documented by: SHARON Sodium Chloride (Normal Saline 0.9%) 1,000 mls @ 1,000 mls/hr IV BOLUS ONE Stop: 10/20/19 07:57 Last Infusion: 10/20/19 10:30 Dose: 0 mls/hr Documented by: Admin: 10/20/19 07:42 Dose: 1,000 mls/hr Documented by: SHARON Ondansetron HCl (Zofran) 4 mg IV NOW ONE Stop: 10/20/19 07:58 Last Admin: 10/20/19 08:19 Dose: 4 mg Documented by: SHARON Pantoprazole Sodium (Protonix) 40 mg IV NOW ONE Stop: 10/20/19 06:59 Last Admin: 10/20/19 07:42 Dose: 40 mg Documented by: SHARON Vital Signs Vital signs: Vital Signs - 8 hr 10/20/19 07:02 10/20/19 07:49 Temperature 98.6 F Pulse Rate 82 64 Respiratory Rate 16 16 Blood Pressure 156/85 H Blood Pressure [Left Arm] 144/65 H Pulse Oximetry 99 98 MDM - Abdominal Pain Lab Data Result diagrams: 10/20/19 07:29 10/20/19 07:29 Labs: Lab Results 06/19/20 06/19/20 06/19/20 Range/Units 07:29 07:29 07:48 WBC 8.0 (4.5-11.0) X10^3/uL RBC 5.05 (4.0-5.2) X10^6/uL Hgb 14.8 (12.0-16.0) g/dL Hct 43.1 (36-46) % MCV 85.3 (80-100) fL MCH 29.2 (26-34) PG MCHC 34.3 (30-36) % RDW 15.3 H (11.6-14.8) % Plt Count 267 (150-400) X10^3/uL Neut % (Auto) 70.0 (50-75) % Lymph % (Auto) 18.0 L (25-40) % [place] % (Auto) 9.4 (3-14) % Eos % (Auto) 2.3 (2-4) % Baso % (Auto) 0.3 (0-2) % Neut # (Auto) 5600 (6713-0898) /uL Lymph # (Auto) 1500 (0688-6741) /uL [place] # (Auto) 800 (0-900) /uL Eos # (Auto) 200 (0-450) /uL Baso # (Auto) 0 (0-100) /uL Sodium 137 (137-145) mmol/L Potassium 3.9 (3.4-5.1) mmol/L Chloride 105 (98-107) mmol/L Carbon Dioxide 25 (22-32) mmol/L BUN 15 (7-17) mg/dL Creatinine 0.65 (0.52-1.04) mg/dL Estimated GFR > 60.0 (>60) mL/min BUN/Creatinine Ratio 23.1 H (6-22) Glucose 108 (80-110) mg/dL Calcium 9.8 (8.4-10.2) mg/dL Total Bilirubin 0.8 (0.2-1.3) mg/dL AST 36 (14-36) IU/L ALT 45 H (<35) IU/L Alkaline Phosphatase 95 (38-126) U/L Total Protein 7.7 (6.3-8.2) g/dL Albumin 4.5 (3.5-5.0) g/dL Globulin 3.2 (1.7-4.1) g/dL Albumin/Globulin Ratio 1.4 (1.0-2.8) Lipase 90 (23-300) U/L Urine RBC None seen (0-5/HPF) Urine WBC 1-5/hpf (0-5/HPF) Urine Bacteria Occasional (0-1) (None) Ur Culture Indicated? Specimen cultured Point of care testing: Urine Dip Bedside Urine Glucose Negative Bedside Urine Bilirubin - Negative Bedside Urine Ketone - Negative Urine Specific [place] 1.010 Bedside Urine Occult Blood - Negative Bedside Urine pH 6.0 Bedside Urine Protein - Negative Bedside Urine Urobilinogen - Negative Bedside Urine Nitrite - Negative Bedside Urine Leukocytes + 70 Esterase Discharge Plan Departure Patient Disposition: Home Clinical Impression: Acute upper abdominal pain Gastritis Qualifiers: Gastritis type: unspecified gastritis Chronicity: acute Gastritis bleeding: without bleeding Qualified Code(s): K29.00 - Acute gastritis without bleeding Discharge Date/Time: 10/20/19 10:54 Instructions: DI for Gastritis, DI for Abdominal Pain-Adult, DI for Dyspepsia Activity Restrictions/Additional Instructions: 1. Follow-up with your primary care physician and make an appointment to be re-evaluated and possibly referred to a senior environmental practice leader for an upper endoscopic exam. 2. Return to the emergency department if you develop worsening pain fever, passing-out for persistent nausea and vomiting uncontrolled by medication. 3. Take the Keflex 500 mg 3 times a day as needed for the next 4 days for possible urinary tract infection your culture remains pending. 4. Take Protonix 40 mg per day for the next 14 days. 5. For pain and discomfort indigestion, heartburn, take care of Fe 1 g orally up to 4 times a day as needed. 5. For abdominal pain cramps take Bentyl 20 mg 3 times a day as needed. 6. Drink 2-3 L of fluid per day. 7. If you have any questions or worsening pain or discomfort about what is going on you need to return to the emergency department for re-evaluation. Prescriptions: New dicyclomine 20 mg tablet 20 mg PO TID Qty: 15 RF: 0 sucralfate [Carafate] 100 mg/mL suspension 10 ml PO QID Qty: 210 RF: 1 cephalexin [Keflex] 500 mg capsule 500 mg PO TID Qty: 15 RF: 0 pantoprazole [Protonix] 40 mg tablet,delayed release (DR/EC) 40 mg PO DAILY Qty: 14 RF: 0 No Action calcium carbonate-vitamin D3 1,500 MG/200 IU tablet 1 tab PO DAILY Qty: 0 RF: 0 Active Q 200 MG capsule 200 mg PO DAILY Qty: 0 RF: 0 meclizine 25 mg tablet 12.5 - 25 mg PO TID-QID PRN (Reason: dizziness) Qty: 60 RF: 5 levothyroxine 88 mcg tablet 88 mcg PO DAILY Qty: 90 RF: 3 methocarbamol [Robaxin] 500 mg tablet 500 mg PO Q6H PRN (Reason: back pain/spasm) Qty: 40 RF: 0 Referrals: Meera Harris DO [Primary Care Provider] -
[2019-10-20 07:49] VITALS: BP 144/65; PULSE 64; RESP 16; O2SAT 98
--- NOTE | 2019-10-20 07:54 | DI.RAD.S_ITS ---
PROCEDURE: XR CHEST 2V INDICATIONS: right and left upper quadrant abdominal and back pain TECHNIQUE: 2 views of the chest were acquired. COMPARISON: None. FINDINGS: Surgical changes and devices: None. Lungs and pleura: There are indistinct right lower lobe infrahilar opacities. Left lung is clear. No pleural effusions or pneumothorax. Mediastinum: Mediastinal contours are normal. Heart size is normal. Bones and chest wall: No suspicious bony abnormalities. Soft tissues appear unremarkable. IMPRESSION: 1. Right lower lobe infrahilar opacities are nonspecific and the differential includes developing pneumonia or atelectasis. Dictated by: Sharad Shell M.D. on 10/20/2019 at 8:05 Approved by: Sharad Shell M.D. on 10/20/2019 at 8:07
--- NOTE | 2019-10-20 07:54 | DI.CT.S_ITS ---
PROCEDURE: CT ABDOMEN PELVIS WO CON INDICATIONS: right and left upper abdominal pain with flank pain TECHNIQUE: Noncontrast 5 mm thick sections acquired from the diaphragms to the symphysis. 5 mm coronal and sagittal reformats were then performed. For radiation dose reduction, the following was used: automated exposure control, adjustment of mA and/or kV according to patient size. COMPARISON: None. FINDINGS: Image quality: Excellent. ABDOMEN: Lung bases: Lung bases are clear. Heart size is normal. Solid organs: Liver is normal in size. Gallbladder is unremarkable. Pancreas is normal in contours. Spleen is normal in size. No adrenal nodules. There is a horseshoe kidney noted. No hydronephrosis or nephrolithiasis. Peritoneum and bowel: Unenhanced bowel loops demonstrate normal wall thickness and caliber. The appendix is not visualized; however there is no discrete right lower quadrant fluid or fat stranding to suggest acute appendicitis.There are minimal scattered colonic diverticula. No findings to suggest acute diverticulitis. No free fluid or air. Nodes and vessels: No retroperitoneal or mesenteric adenopathy by size criteria. Aorta and inferior vena cava are normal in caliber. There are scattered atheromatous calcifications throughout the aorta and iliac arteries bilaterally. Miscellaneous: No ventral hernias. PELVIS: Genitourinary: Bladder wall thickness is normal. Miscellaneous: No inguinal hernias or adenopathy. Bones: No suspicious bony lesions. No vertebral body compression fractures. IMPRESSION: 1. No hydronephrosis, nephrolithiasis, hydroureter, ureterolithiasis. 2. No acute intra-abdominal findings. 3. Aortic atherosclerosis. Dictated by: Kiarra Pool M.D. on 10/20/2019 at 8:35 Approved by: Kiarra Pool M.D. on 10/20/2019 at 8:42
[2019-10-20 07:55] LABS: RBC Urine None Seen (0-5/HPF)
[2019-10-20 07:58] LABS: Add Manual Diff / Slide Review NO; Basophils Absolute Auto 0 /uL (0-100); Basophils Percent Auto 0.3 % (0-2); Eosinophils Absolute Auto 200 /uL (0-450); Eosinophils Percent Auto 2.3 % (2-4); Hematocrit 43.1 % (36-46); Hemoglobin 14.8 g/dL (12.0-16.0); Lymphocytes Absolute Auto 1500 /uL (1100-4500); Mean Corpuscular HGB Conc 34.3 % (30-36); Mean Corpuscular Hemoglobin 29.2 PG (26-34); Mean Corpuscular Volume 85.3 fL (80-100); Monocytes Absolute Auto 800 /uL (0-900); Monocytes Percent Auto 9.4 % (3-14); Neutrophils Absolute Auto 5600 /uL (1500-7000); Platelet Count 267 X10^3/uL (150-400); Red Blood Cell Count 5.05 X10^6/uL (4.0-5.2); Red Cell Distribution Width 15.3 % (11.6-14.8)
[2019-10-20 08:04] LABS: Bacteria Urine Occasional (0-1); Culture Indicated Urine Specimen Cultured; WBC Urine 1-5/HPF (0-5/HPF)
[2019-10-20] MEDS: DICYCLOMINE 10 MG CAPSULE 20 MG PO (08:19)
[2019-10-20] MEDS: ONDANSETRON 4 MG/2 ML INJ IV (08:19)
[2019-10-20 08:21] LABS: Alanine Aminotransferase 45 IU/L (<35); Albumin 4.5 g/dL (3.5-5.0); Albumin Globulin Ratio 1.4 (1.0-2.8); Alkaline Phosphatase 95 U/L (38-126); Aspartate Aminotransferase 36 IU/L (14-36); BUN Creatinine Ratio 23.1 (6-22); Bilirubin Total 0.8 mg/dL (0.2-1.3); Blood Urea Nitrogen 15 mg/dL (7-17); Calcium 9.8 mg/dL (8.4-10.2); Carbon Dioxide 25 mmol/L (22-32); Chloride 105 mmol/L (98-107); Estimated Glomerular Filt Rate > 60.0 mL/min (>60); Globulin 3.2 g/dL (1.7-4.1); Glucose 108 mg/dL (80-110); HEMOLYSIS < 15 (0-50); Lipase 90 U/L (23-300); Potassium 3.9 mmol/L (3.4-5.1); Sodium 137 mmol/L (137-145); Total Protein 7.7 g/dL (6.3-8.2)
[2019-10-20] MEDS: cephALEXin 250 MG CAPSULE 500 MG PO (10:22)
[2019-10-20 10:46] VITALS: BP 150/65; PULSE 53; RESP 16; O2SAT 97
== END 2019-10-20 10:54 | disposition home or self-care (01) ==
PROVIDERS: Emergency Medicine; Emergency Provider Emergency Medicine; PCP Family Medicine
DX: K29.00 Acute gastritis without bleeding (principal); R10.12 Left upper quadrant pain; R10.11 Right upper quadrant pain
CPT/HCPCS: 36415; 71046; 74176; 80053; 81003; 81015; 83690; 85025; 87086; 96361; 96374; 96375; 99284; 99285; C9113; J2405

== ENCOUNTER → 2019-10-23 11:01 | Outpatient (CLI) | payer MEDICARE, OTHER, SELFPAY ==
[2019-10-23 13:20] LABS: TSH w/ Reflex to FT4 3.29 uIU/mL (0.47-4.68)
== END ==
PROVIDERS: PCP Family Medicine; Referring Provider Registered Nurse; Visit Provider Registered Nurse
DX: E03.9 Hypothyroidism, unspecified (principal)
CPT/HCPCS: 36415; 84443

== ENCOUNTER → 2020-01-18 17:37 | Outpatient (CLI) | payer MEDICARE, OTHER, SELFPAY ==
--- NOTE | 2020-01-18 | DI.MG.S_ITS ---
BILATERAL DIGITAL SCREENING MAMMOGRAM 3D/2D WITH CAD: 01/18/2020 CLINICAL: Routine screening. Comparison is made to exams dated: 01/03/2019 mammogram, 03/04/2017 mammogram, and 02/16/2017 mammogram - [facility]. There are scattered fibroglandular elements in both breasts. Current study was also evaluated with a Computer Aided Detection (CAD) system. There are benign vascular calcifications in the right breast. No significant masses, calcifications, or other findings are seen in either breast. There has been no significant interval change. IMPRESSION: BENIGN There is no mammographic evidence of malignancy. A 1 year screening mammogram is recommended. This exam was interpreted at Station ID: [id number]. NOTE: For mammograms, a report in lay terms will be sent to the patient. Approximately 15% of breast malignancies will not be visualized mammographically. In the management of a palpable breast mass, a negative mammogram must not discourage biopsy of a clinically suspicious lesion. Electronically Signed By: Pari gaffney/contreras:01/19/2020 10:18:46 letter sent: Normal Exam ACR BI-RADS Category 2: Benign Finding(s) [id number]
== END ==
PROVIDERS: PCP Family Medicine; Referring Provider Family Medicine; Visit Provider Family Medicine
DX: Z12.31 Encounter for screening mammogram for malignant neoplasm of breast (principal)
CPT/HCPCS: 77063; 77067

== ENCOUNTER 2020-06-25 18:40 | Observation (INO) | payer MEDICARE, OTHER, SELFPAY ==
[2020-06-25] VITALS (11 sets, daily range): BP systolic 120–177; BP diastolic 59–79; PULSE 58–69; RESP 15–29; TEMP 36.3–36.6; O2SAT 96–99; BMI 29.2
--- NOTE | 2020-06-25 18:44 | DI.RAD.S_ITS ---
PROCEDURE: XR CHEST 1V INDICATIONS: chest pain TECHNIQUE: One view of the chest was acquired. COMPARISON: [facility], CR, XR CHEST 2V, 10/20/2019, 6:48. FINDINGS: Surgical changes and devices: None. Lungs and pleura: Lungs are clear. No pleural effusions or pneumothorax. Mediastinum: Mediastinal contours appear normal. Heart size is normal. Bones and chest wall: No suspicious bony lesions. Overlying soft tissues appear unremarkable. IMPRESSION: No acute cardiopulmonary disease. Dictated by: Trell Garcia M.D. on 06/25/2020 at 19:25 Approved by: Trell Garcia M.D. on 06/25/2020 at 19:25
--- NOTE | 2020-06-25 19:00 | PC.NURSE ---
Pt reporting pain under right side of ribs, radiating to right flank. Denies nausea. Declines pain meds at this time. States, I would like to know if there is anything going on first. Verbally confirms understanding to notify nurse if she changes her mind and wants something for pain.
[2020-06-25 19:13] LABS: Add Manual Diff / Slide Review NO; Basophils Absolute Auto 0 /uL (0-100); Basophils Percent Auto 0.5 % (0-2); Eosinophils Absolute Auto 200 /uL (0-450); Eosinophils Percent Auto 2.2 % (2-4); Hematocrit 44.5 % (36-46); Hemoglobin 14.6 g/dL (12.0-16.0); Lymphocytes Absolute Auto 1700 /uL (1100-4500); Lymphocytes Percent Auto 23.3 % (25-40); Mean Corpuscular HGB Conc 32.7 % (30-36); Mean Corpuscular Hemoglobin 28.1 PG (26-34); Mean Corpuscular Volume 85.9 fL (80-100); Monocytes Absolute Auto 700 /uL (0-900); Monocytes Percent Auto 8.7 % (3-14); Neutrophils Absolute Auto 4900 /uL (1500-7000); Neutrophils Percent Auto 65.3 % (50-75); Platelet Count 283 X10^3/uL (150-400); Red Blood Cell Count 5.18 X10^6/uL (4.0-5.2); Red Cell Distribution Width 15.3 % (11.6-14.8); White Blood Cell Count 7.5 X10^3/uL (4.5-11.0)
--- NOTE | 2020-06-25 19:18 | ED.CHESTPAIN ---
HPI - Chest Pain General Chief Complaint: Chest Pain Stated Complaint: RIGHT SIDE CHEST PAIN Time Seen by Provider: 06/25/20 18:47 Source: patient and family Mode of arrival: Ambulatory Limitations: no limitations History of Present Illness HPI narrative: 72F nonsmoker with history of diabetes, HTN, and hypothyroidism presents with her in the chief complaint of a sudden onset right upper abdominal pain with radiation to her back. She admits to some nausea but denies any vomiting. She states her pain is worse with motion and improves with rest. She denies chest pain or shortness of breath. She is not dizzy nor weak or lightheaded. She denies any fever or chills. She states she thinks her pain started before the last time she ate but seems to think that having a bite of spaghetti at about 5:00 p.m. made her pain even worse. She denies any exertional symptoms nor cardiac equivalent such as weakness or unexplained fatigue, or exercise intolerance. She denies any recent injury, long distance travel or history of blood clot Related Data Home Medications Medication Instructions Recorded Confirmed Active Q 200 mg PO DAILY #0 06/03/16 06/25/20 calcium carbonate-vitamin D3 1 tab PO DAILY #0 06/03/16 06/25/20 Previous Rx's Medication Instructions Recorded meclizine 25 mg tablet 12.5 - 25 mg PO TID-QID PRN #60 tab 03/24/19 levothyroxine 88 mcg tablet See Rx Instructions .ROUTE 04/15/20 .COMPLEX #90 tab Allergies Allergy/AdvReac Type Severity Reaction Status Date / Time aspirin [ASPIRIN] Allergy Unknown Verified 10/23/19 10:28 adhesive tape AdvReac Intermediate Blister Verified 10/23/19 10:28 Review of Systems Constitutional Constitutional: Denies chills, Denies fatigue, Denies fever(s), Denies frequent falls, Denies lethargy and Denies weakness Eyes Eyes: Denies change in vision, Denies eye discharge, Denies irritation and Denies loss of vision ENT Ears, Nose, Mouth, and Throat: Denies change in voice, Denies dizziness, Denies neck pain, Denies sore throat and Denies throat swelling Cardiovascular Cardiovascular: Denies chest pain, Denies irregular heart rhythm, Denies lightheadedness, Denies palpitations, Denies dyspnea, Denies dyspnea on exertion and Denies orthopnea Respiratory Respiratory: Denies cough, Denies dyspnea, Denies dyspnea on exertion and Denies wheezing Gastrointestinal Gastrointestinal: Reports abdominal pain, Denies change in bowel habits, Denies diarrhea, Reports nausea and Denies vomiting Musculoskeletal Musculoskeletal: Denies neck pain and Denies numbness Integumentary/Breasts Skin/Breast: Denies pruritus, Denies erythema, Denies rash and Denies wounds Neurologic Neurologic: Denies behavioral changes, Denies confusion, Denies dizziness, Denies frequent falls, Denies loss of vision, Denies numbness and Denies weakness Psychiatric Psychiatric: Denies anxiety, Denies behavioral changes, Denies confusion, Denies depression, Denies homicidal ideation and Denies suicidal ideation Endocrine Endocrine: Denies fatigue, Denies flushing and Denies palpitations Hematologic/Lymphatic Hematologic/Lymphatic: Denies easy bruising Allergic/Immunologic Allergic/Immunologic: Denies urticaria, Denies throat swelling and Denies wheezing Patient History Medical History Chicken pox History of CT scan (~04/2015) History of MRI (~12/2009) History of MRI of brain and brain stem (~12/2009) History of stress test (~04/2015) History of urinary incontinence Hypothyroidism Measles Mumps Sarcoidosis (~2006) Vertigo (~1999) Vision disorder Surgical History Anesthesia Status post appendectomy (~04/1991) Status post biopsy (~04/2007) Status post colonoscopy (~04/2009) Status post endoscopy (~08/2003) Status post hysterectomy (~04/1991) Status post laparoscopy (~08/2004) Family History Father Heart disease Hypertension High cholesterol Stroke Diabetes mellitus Grandfather No problems noted. Grandmother No problems noted. Mother No problems noted. Grandmother No problems noted. Social History marital status: household members: spouse lives independently: Yes occupational status: other (retired) Smoking Status: Never smoker alcohol intake: current substance use type: does not use Smoking Status: Never smoker alcohol intake frequency: holidays/special occasions only Substance Use Type: does not use Exam Narrative Exam Narrative: GENERAL: [70] year old patient appears stated age. Well-nourished, well-developed patient, in mild distress. Obviously uncomfortable, rubbing her right upper abdomen HEAD: Atraumatic. Normocephalic. EYES: Pupils equal round and reactive. Extraocular motions intact. No scleral icterus. No injection or drainage. ENT: Nose without bleeding, purulent drainage. Throat without erythema, tonsillar hypertrophy or exudate. Airway patent. NECK: Trachea midline. Non tender CARDIOVASCULAR: Regular rate and rhythm without murmurs, gallops, or rubs. RESPIRATORY: Clear to auscultation. Breath sounds equal bilaterally. No wheezes, rales, or rhonchi. GASTROINTESTINAL: Abdomen soft, tender in the right upper quadrant, nondistended. EXTREMITIES: No edema or joint tenderness. BACK: Nontender without deformity or crepitance. No flank tenderness. NEURO: AOx3. SKIN: No rash or erythema of visible areas Initial Vital Signs Initial Vital Signs: Vital Signs Temperature 97.4 F L 06/25/20 18:44 Pulse Rate 67 06/25/20 18:44 Respiratory Rate 17 06/25/20 18:44 Blood Pressure 160/75 H 06/25/20 18:44 Pulse Oximetry 98 06/25/20 18:44 Course Orders Ordered: ED Orders 06/25/20 18:44 XR chest 1V Stat EKG-12 Lead Stat 06/25/20 19:05 Complete Blood Count AUTO DIFF Stat Comprehensive Metabolic Panel Stat D Dimer Stat Lipase Stat Partial Thromboplastin Time Stat Prothrombin Time INR Stat Troponin & CK Cardiac Panel Stat 06/25/20 19:15 Urine Culture Stat Urine Microscopic Stat 06/25/20 19:25 US abdomen limited Stat 06/25/20 20:35 COVID19 Stat Hydromorphone HCl (Hydromorphone 0.5 Mg Inj) 0.5 mg IV Q2H PRN PRN Reason: Pain, Severe (7-10) Last Admin: 06/25/20 22:47 Dose: 0.5 mg Documented by: LUCY Sodium Chloride (Normal Saline 0.9%) 1,000 mls @ 125 mls/hr IV CONT KEELY Last Admin: 06/25/20 22:49 Dose: 125 mls/hr Documented by: LUCY Piperacillin/Tazobactam/Dextrose (Zosyn) 3.375 gm in 50 mls @ 100 mls/hr IV Q8H KEELY Last Admin: 06/25/20 22:49 Dose: 100 mls/hr Documented by: LUCY Discontinued Medications Hydromorphone HCl (Hydromorphone 0.5 Mg Inj) 0.5 mg IV NOW ONE Stop: 06/25/20 20:04 Last Admin: 06/25/20 20:22 Dose: 0.5 mg Documented by: BROWN Sodium Chloride (Normal Saline 0.9%) 1,000 mls @ 1,000 mls/hr IV BOLUS ONE Stop: 06/25/20 20:25 Last Infusion: 06/25/20 21:48 Dose: 0 mls/hr Documented by: Admin: 06/25/20 20:22 Dose: 1,000 mls/hr Documented by: BROWN Consultations Consultation #1: Call to on-call surgery (Lyla) who is happy to accept patient on his service. NPO after midnight, fluids, antibiotics, likely surgery tomorrow Vital Signs Vital signs: Vital Signs - 8 hr 06/25/20 18:44 06/25/20 19:23 06/25/20 19:24 Temperature 97.4 F L Pulse Rate 67 69 66 Respiratory Rate 17 25 H 19 Blood Pressure 160/75 H 162/79 H Pulse Oximetry 98 99 98 06/25/20 19:30 06/25/20 20:00 06/25/20 20:01 Temperature Pulse Rate 65 65 66 Respiratory Rate 23 18 29 H Blood Pressure 170/72 H 156/72 H Pulse Oximetry 98 97 97 06/25/20 20:30 06/25/20 21:00 Temperature Pulse Rate 66 67 Respiratory Rate 15 15 Blood Pressure 177/72 H 150/65 H Pulse Oximetry 99 96 MDM - Chest Pain Lab Data Result diagrams: 06/25/20 19:05 06/25/20 19:05 Labs: Lab Results 06/25/20 06/25/20 06/25/20 Range/Units 19:05 19:05 19:05 WBC 7.5 (4.5-11.0) X10^3/uL RBC 5.18 (4.0-5.2) X10^6/uL Hgb 14.6 (12.0-16.0) g/dL Hct 44.5 (36-46) % MCV 85.9 (80-100) fL MCH 28.1 (26-34) PG MCHC 32.7 (30-36) % RDW 15.3 H (11.6-14.8) % Plt Count 283 (150-400) X10^3/uL Neut % (Auto) 65.3 (50-75) % Lymph % (Auto) 23.3 L (25-40) % [place] % (Auto) 8.7 (3-14) % Eos % (Auto) 2.2 (2-4) % Baso % (Auto) 0.5 (0-2) % Neut # (Auto) 4900 (1511-5432) /uL Lymph # (Auto) 1700 (9020-9836) /uL [place] # (Auto) 700 (0-900) /uL Eos # (Auto) 200 (0-450) /uL Baso # (Auto) 0 (0-100) /uL PT 11.7 (10.1-12.7) SECONDS INR 1.0 (0.9-1.3) APTT 38 H (26.4-36.2) SECONDS D-Dimer (<230) ng/mL Sodium 138 (137-145) mmol/L Potassium 3.7 (3.4-5.1) mmol/L Chloride 103 (98-107) mmol/L Carbon Dioxide 28 (22-32) mmol/L BUN 19 H (7-17) mg/dL Creatinine 0.79 (0.52-1.04) mg/dL Estimated GFR > 60.0 (>60) mL/min BUN/Creatinine Ratio 24.1 H (6-22) Glucose 99 (80-110) mg/dL Calcium 10.1 (8.4-10.2) mg/dL Total Bilirubin 0.4 (0.2-1.3) mg/dL AST 40 H (14-36) IU/L ALT 45 H (<35) IU/L Alkaline Phosphatase 98 (38-126) U/L Total Creatine Kinase 57 (30-135) U/L CK-MB (CK-2) TNP CK-MB (CK-2) Rel Index TNP Troponin I < 0.012 (0.01-0.034) ng/mL Total Protein 8.2 (6.3-8.2) g/dL Albumin 4.6 (3.5-5.0) g/dL Globulin 3.6 (1.7-4.1) g/dL Albumin/Globulin Ratio 1.3 (1.0-2.8) Lipase 226 (23-300) U/L Urine RBC (0-5/HPF) Urine WBC (0-5/HPF) Urine Bacteria (None) Ur Culture Indicated? SARS-CoV-2 (PCR) (Negative) 06/25/20 06/25/20 06/25/20 Range/Units 19:05 19:15 20:35 WBC (4.5-11.0) X10^3/uL RBC (4.0-5.2) X10^6/uL Hgb (12.0-16.0) g/dL Hct (36-46) % MCV (80-100) fL MCH (26-34) PG MCHC (30-36) % RDW (11.6-14.8) % Plt Count (150-400) X10^3/uL Neut % (Auto) (50-75) % Lymph % (Auto) (25-40) % [place] % (Auto) (3-14) % Eos % (Auto) (2-4) % Baso % (Auto) (0-2) % Neut # (Auto) (8479-9280) /uL Lymph # (Auto) (5256-5918) /uL [place] # (Auto) (0-900) /uL Eos # (Auto) (0-450) /uL Baso # (Auto) (0-100) /uL PT (10.1-12.7) SECONDS INR (0.9-1.3) APTT (26.4-36.2) SECONDS D-Dimer < 200 (<230) ng/mL Sodium (137-145) mmol/L Potassium (3.4-5.1) mmol/L Chloride (98-107) mmol/L Carbon Dioxide (22-32) mmol/L BUN (7-17) mg/dL Creatinine (0.52-1.04) mg/dL Estimated GFR (>60) mL/min BUN/Creatinine Ratio (6-22) Glucose (80-110) mg/dL Calcium (8.4-10.2) mg/dL Total Bilirubin (0.2-1.3) mg/dL AST (14-36) IU/L ALT (<35) IU/L Alkaline Phosphatase (38-126) U/L Total Creatine Kinase (30-135) U/L CK-MB (CK-2) CK-MB (CK-2) Rel Index Troponin I (0.01-0.034) ng/mL Total Protein (6.3-8.2) g/dL Albumin (3.5-5.0) g/dL Globulin (1.7-4.1) g/dL Albumin/Globulin Ratio (1.0-2.8) Lipase (23-300) U/L Urine RBC None seen (0-5/HPF) Urine WBC 5-10/hpf H (0-5/HPF) Urine Bacteria None seen (None) Ur Culture Indicated? Specimen cultured SARS-CoV-2 (PCR) Negative (Negative) Urine Dip Bedside Urine Glucose Negative Bedside Urine Bilirubin - Negative Bedside Urine Ketone - Negative Urine Specific [place] 1.010 Bedside Urine Occult Blood - Negative Bedside Urine pH 6.5 Bedside Urine Protein - Negative Bedside Urine Urobilinogen - Negative Bedside Urine Nitrite - Negative Bedside Urine Leukocytes - Negative Esterase Imaging Data US - abdomen: Radiologist's Impression: stone in neck of GB without obvious wall thickening or pericholeycystic fluid Discharge Plan Departure Patient Disposition: Admitted as Observation Clinical Impression: Cholelithiasis Qualifiers: Cholelithiasis location: gallbladder Cholecystitis presence: without cholecystitis Biliary obstruction: without biliary obstruction Qualified Code(s): K80.20 - Calculus of gallbladder without cholecystitis without obstruction Admit Date/Time: 06/25/20 21:33 Admit Provider: Bishop Arita
[2020-06-25 19:20] LABS: Prothrombin Time 11.7 SECONDS (10.1-12.7)
[2020-06-25 19:23] LABS: PTT Partial Thromboplastin Tim 38 SECONDS (26.4-36.2)
[2020-06-25 19:24] LABS: Alanine Aminotransferase 45 IU/L (<35); Albumin 4.6 g/dL (3.5-5.0); Albumin Globulin Ratio 1.3 (1.0-2.8); Alkaline Phosphatase 98 U/L (38-126); Aspartate Aminotransferase 40 IU/L (14-36); BUN Creatinine Ratio 24.1 (6-22); Bilirubin Total 0.4 mg/dL (0.2-1.3); Blood Urea Nitrogen 19 mg/dL (7-17); Calcium 10.1 mg/dL (8.4-10.2); Carbon Dioxide 28 mmol/L (22-32); Chloride 103 mmol/L (98-107); Creatine Kinase 57 U/L (30-135); Estimated Glomerular Filt Rate > 60.0 mL/min (>60); Globulin 3.6 g/dL (1.7-4.1); Glucose 99 mg/dL (80-110); HEMOLYSIS 16 (0-50); Lipase 226 U/L (23-300); Potassium 3.7 mmol/L (3.4-5.1); Sodium 138 mmol/L (137-145); Total Protein 8.2 g/dL (6.3-8.2)
--- NOTE | 2020-06-25 19:25 | DI.US.S_ITS ---
PROCEDURE: US ABDOMEN LIMITED INDICATIONS: RIGHT UPPER QUADRANT TECHNIQUE: Real-time focused scanning was performed of the abdomen, with image documentation. COMPARISON: [facility], US, US ABDOMEN COMPLETE, 11/22/2019, 8:40. [facility], CT, CT ABDOMEN PELVIS WO CON, 10/20/2019, 8:01. FINDINGS: There is a 3.7 mm nonmobile stone in the gallbladder neck. No gallbladder wall thickening, pericholecystic fluid or sonographic Whitmore's sign. Common bile duct is normal in caliber measuring 5.9 mm. Visualized pancreas is normal. Liver demonstrates increased echotexture. IMPRESSION: 1. Cholelithiasis. There is a 3 mm nonmobile stone in the gallbladder neck. No gallbladder wall thickening, pericholecystic fluid collection or sonographic Whitmore sign. 2. Diffusely increased hepatic echotexture. This finding is most likely secondary to hepatic fatty infiltration although other hepatocellular disease may have a similar appearance. Recommend clinical correlation. Dictated by: Trell Garcia M.D. on 06/25/2020 at 20:04 Approved by: Trell Garcia M.D. on 06/25/2020 at 20:07
[2020-06-25 19:36] LABS: Troponin I < 0.012 ng/mL (0.01-0.034)
[2020-06-25 19:40] LABS: Bacteria Urine None Seen; RBC Urine None Seen (0-5/HPF)
[2020-06-25 19:53] LABS: Culture Indicated Urine Specimen Cultured; WBC Urine 5-10/HPF (0-5/HPF)
[2020-06-25 19:56] LABS: D Dimer < 200 ng/mL (<230)
[2020-06-25] MEDS: SODIUM CHLORIDE 0.9% 1,000 ML 1000 ML IV (20:22)
[2020-06-25] MEDS: HYDROMORPHONE 0.5 MG INJ IV ×2 (20:22→22:47)
[2020-06-25 21:09] LABS: COVID19 -Nasal RAPID Negative (Negative)
[2020-06-25] MEDS: PIPERACILLIN-TAZO 3.375 GM/50 ML FROZ.PIGGY IV (22:49)
[2020-06-25] MEDS: SODIUM CHLORIDE 0.9% 1,000 ML 125 ML IV (22:49)
[2020-06-26] VITALS (13 sets, daily range): BP systolic 104–140; BP diastolic 44–94; PULSE 57–93; RESP 10–17; TEMP 36.4–37; O2SAT 92–98; BMI 29.2
--- NOTE | 2020-06-26 | PATH_ITS ---
[facility] Accession Number: [id number] . 01 Material submitted: . gallbladder - GALLBLADDER AND CONTENTS . 02 Diagnosis: Gallbladder, Cholecystectomy: Chronic cholecystitis. Negative for dysplasia or malignancy. MRV 07/01/2020 1319 Local . 02 Electronically signed: . Tricia Weston MD, Pathologist NPI- [id number] . 01 Gross description: . The specimen is received in formalin, labeled gallbladder and contents and consists of a 6.3 x 3.0 x 2.0 cm previously disrupted gallbladder with a 0.3 cm in diameter cystic duct. The serosa is jordan-pink and smooth. Opening reveals green viscous bile with no choleliths identified. The mucosa is jordan-green and velvety and the wall thickness measures 0.2 cm. [employer] sections are submitted to include the en face cystic duct margin (blue) in cassette A1. ([id number]) /MRV 06/28/2020 1046 Local . 02 Pathologist provided ICD-10: K81.1 . 02 CPT . 697599 Performed at: 01 [facility] [address] [place] [address], [place], [place] [id number] MD Sharad Peña MD Phone: [phone] Performed at: [address] [facility] [address] [place], [place] [id number] MD Tricia Weston MD Phone: [phone]
[2020-06-26] MEDS: HYDROMORPHONE 0.5 MG INJ IV ×2 (01:43→06:12)
--- NOTE | 2020-06-26 02:27 | PC.NURSE ---
0150: patient is alert and oriented. Breath sounds CTA with RA sat of 97%. HRR but bradycardic in 50's. Denies nausea. Denies current abdominal pain but states pain is now more in her back on the right thoracic area; medicated with IV Dilaudid. BT present and abdomen is soft. Denies dysuria or frequency but states she has chronic urgency and some stress incontinence. Is able to move herself in bed. Up to bathroom with 1 assist; seemed to be unsteady and weak and stated she felt slight dizzy. Fall risk score is moderate and bed alarm is activated. Has been NPO since 0000 for planned surgery later today
[2020-06-26] MEDS: PIPERACILLIN-TAZO 3.375 GM/50 ML FROZ.PIGGY IV ×2 (05:42→09:35)
[2020-06-26] MEDS: SODIUM CHLORIDE 0.9% 1,000 ML 125 ML IV (07:28)
--- NOTE | 2020-06-26 08:29 | PC.NURSE ---
Pt up to br to void and then back in bed to go to OR for surgery. Chart with Pt.
--- NOTE | 2020-06-26 08:39 | P.HP_ITS ---
History of Present Illness History of Present Illness Date Patient Seen: 06/26/20 Time Patient Seen: 08:39 Chief complaint: RIGHT SIDE CHEST PAIN Narrative: 70-year-old female history sarcoidosis who presented with constant sharp right upper quadrant pain last night associated with nausea following dinner. Workup included CBC unremarkable, total bilirubin 0.4 AST 40 ALT 45, normal lipase. Right upper quadrant ultrasound demonstrates gallstones with 1 stuck within the neck of the gallbladder wall was normal thickness no pericholecystic fluid. History of biliary colic. She was admitted to the hospital for acute cholecystitis started on Zosyn. This morning she feels improved but still has mild persistent right upper quadrant pain. Patient History Medical History (Updated 06/26/20 @ 08:44 by Bishop Arita MD) Chicken pox History of CT scan (~04/2015) History of MRI (~12/2009) History of MRI of brain and brain stem (~12/2009) History of stress test (~04/2015) History of urinary incontinence Hypothyroidism Measles Mumps Sarcoidosis (~2006) Vertigo (~1999) Vision disorder Surgical History Anesthesia Status post appendectomy (~04/1991) Status post biopsy (~04/2007) Status post colonoscopy (~04/2009) Status post endoscopy (~08/2003) Status post hysterectomy (~04/1991) Status post laparoscopy (~08/2004) Family & Social History Family History Father Heart disease Hypertension High cholesterol Stroke Diabetes mellitus Grandfather No problems noted. Grandmother No problems noted. Mother No problems noted. Grandmother No problems noted. Social History: household members spouse Prior Living Arrangements House lives independently Yes Safety & Behavioral: Feels Safe in Current Yes Environment Been Physically Hurt or No Threatened By a Person Suicidal Ideation Description None Suicide Plan Description No Plan Tobacco & Substance use: Smoking Status Never smoker alcohol intake current alcohol intake frequency holiday/special occasion Substance Use Type does not use Meds Home Medications and Allergies Home Medications Medication Instructions Recorded Confirmed Type Active Q 200 mg PO DAILY #0 06/03/16 06/25/20 History calcium carbonate-vitamin D3 1 tab PO DAILY #0 06/03/16 06/25/20 History meclizine 25 mg tablet 12.5 - 25 mg PO TID-QID PRN #60 tab 03/24/19 06/25/20 Rx levothyroxine 88 mcg tablet See Rx Instructions .ROUTE 04/15/20 06/25/20 Rx .COMPLEX #90 tab Allergies Allergy/AdvReac Type Severity Reaction Status Date / Time aspirin [ASPIRIN] Allergy Unknown Verified 10/23/19 10:28 adhesive tape AdvReac Intermediate Blister Verified 10/23/19 10:28 Review of Systems Review of Systems ROS: Yes All systems reviewed with the patient and are negative except as otherwise documented Exam Vital Signs (past 8 hours): - 06/26/20 05:42 06/26/20 07:30 Temperature 98.1 F 97.8 F Pulse Rate 60 57 L Respiratory Rate 16 17 Blood Pressure 104/61 119/59 L Pulse Oximetry 96 95 Oxygen Delivery Method Room Air Oxygen Flow Rate 0 Narrative Exam Narrative: General-no acute distress, well nourished adult woman HEENT-moist mucous membranes, no scleral icterus Neck-supple, no lymphadenopathy Chest- non labored respirations, clear to auscultation bilaterally Cardiac-regular rate no peripheral edema Abdomen-soft, mild right upper quadrant tenderness no peritonitis Extremities-warm, well perfused Neurological-alert and oriented, no focal deficits Objective Labs Result Diagrams: 06/25/20 19:05 06/25/20 19:05 Labs: Laboratory Results - last 24 hr 06/25/20 06/25/20 06/25/20 19:05 19:05 19:05 WBC 7.5 RBC 5.18 Hgb 14.6 Hct 44.5 MCV 85.9 MCH 28.1 MCHC 32.7 RDW 15.3 H Plt Count 283 Neut % (Auto) 65.3 Lymph % (Auto) 23.3 L [place] % (Auto) 8.7 Eos % (Auto) 2.2 Baso % (Auto) 0.5 Neut # (Auto) 4900 Lymph # (Auto) 1700 [place] # (Auto) 700 Eos # (Auto) 200 Baso # (Auto) 0 PT 11.7 INR 1.0 APTT 38 H D-Dimer Sodium 138 Potassium 3.7 Chloride 103 Carbon Dioxide 28 BUN 19 H Creatinine 0.79 Estimated GFR > 60.0 BUN/Creatinine Ratio 24.1 H Glucose 99 Calcium 10.1 Total Bilirubin 0.4 AST 40 H ALT 45 H Alkaline Phosphatase 98 Total Creatine Kinase 57 CK-MB (CK-2) TNP CK-MB (CK-2) Rel Index TNP Troponin I < 0.012 Total Protein 8.2 Albumin 4.6 Globulin 3.6 Albumin/Globulin Ratio 1.3 Lipase 226 Urine RBC Urine WBC Urine Bacteria Ur Culture Indicated? SARS-CoV-2 (PCR) 06/25/20 06/25/20 06/25/20 19:05 19:15 20:35 WBC RBC Hgb Hct MCV MCH MCHC RDW Plt Count Neut % (Auto) Lymph % (Auto) [place] % (Auto) Eos % (Auto) Baso % (Auto) Neut # (Auto) Lymph # (Auto) [place] # (Auto) Eos # (Auto) Baso # (Auto) PT INR APTT D-Dimer < 200 Sodium Potassium Chloride Carbon Dioxide BUN Creatinine Estimated GFR BUN/Creatinine Ratio Glucose Calcium Total Bilirubin AST ALT Alkaline Phosphatase Total Creatine Kinase CK-MB (CK-2) CK-MB (CK-2) Rel Index Troponin I Total Protein Albumin Globulin Albumin/Globulin Ratio Lipase Urine RBC None seen Urine WBC 5-10/hpf H Urine Bacteria None seen Ur Culture Indicated? Specimen cultured SARS-CoV-2 (PCR) Negative Assessment & Plan Assessment and plan (1) Acute cholecystitis: Status: Acute Assessment & Plan narrative: 70-year-old female history of sarcoidosis admitted with acute cholecystitis. Laboratory studies demonstrate normal cbc mild transaminitis and a normal total bilirubin. Ultrasound demonstrates gallstones with a stone lodged within the neck of the gallbladder. Laparoscopic cholecyst ectomy is indicated for treatment of cholecystitis. Technical details of the operation were discussed with the patient and her . Operative risks including bleeding infection bile leak damage to surrounding structures conversion to open were discussed. Their questions have been answered and she is in agreement with this plan -NPO IV fluids -OR this morning for a laparoscopic cholecystectomy. -continue Zosyn -anticipate discharge home today postoperatively
[2020-06-26] MEDS: LACTATED RINGERS 1,000 ML 42 ML IV (09:00)
--- NOTE | 2020-06-26 09:53 | SUR.OPER ---
Supine on padded OR bed, head on pillow, arms secured on padded arm boards at <90 degrees abduction, legs uncrossed, safety belt at thigh, tape over blanket over lower legs.
[2020-06-26] MEDS: BUPIVACAINE 0.25% (PF) VIAL 30 ML INJ (10:01)
--- NOTE | 2020-06-26 10:59 | PM.OP.1 ---
Operative Date/Time/Diagnoses Date of procedure: 06/26/20 Time of procedure: 10:59 Pre-op diagnosis: acute cholecystitis Post-op diagnosis: same Procedure & Clinicians Procedure: laparoscopic cholecystectomy Same procedure as scheduled: Yes Indications: 70F presented with constant RUQ pain US demonstrates gallstone lodged within the neck of the gallbladder. Surgeon: Bishop Arita Anesthesia Type: General Operative Notes Findings: tensely fluid filled gallbladder. Specimen(s): other (gallbladder) Estimated Blood Loss (mL): 100 Procedure in detail: The patient was placed supine on the table and bilateral lower extremity compression devices were applied. Anesthesia was induced they were intubated with an endotracheal tube and received 2g of Ancef. A time-out was performed. They were prepped and draped in sterile fashion. An infraumbilical incision was made, the umbilical stalk was elevated and the fascia was sharply incised entering the abdomen atraumatically. A blunt tip 12mm balloon trocar was then inserted, pneumoperitoneum was established and inspection of the abdomen demonstrated no evidence of injury. They were placed head up and right side up and then a 11 mm port was placed high in the epigastrium and two 5mm in the right upper quadrant. The gallbladder was tensely fluid filled consistent with acute cholecystitis. The gallbladder was then percutaneously drained to facilitate its manipulation. The gallbladder was grasped by the fundus and retracted over the liver and retracted laterally by the infundibulum. Using electrocautery the lateral plane between the gallbladder and the liver was opened towards the fundus. The gallbladder was then retracted laterally and the medial plane was developed in the same manner. With the gallbladder mobilized the bottom of the cystic plate was visualized. The hepatocystic triangle was meticulosly skeletonized using hook electrocautery of all fat and fibrous tissue from both the front and the back. Only two structures were then clearly seen entering the gallbladder the cystic duct and the cystic artery. With the critical view of safety fully established the cystic duct was clipped twice proximally and once distally using the 10 mm clip applied under direct visualization and then sharply divided. The cystic artery was divided in the same fashion. The gallbladder was removed from the liver bed using electro cautery. The liver bed was then inspected for hemostasis and this was achieved. The abdomen was irrigated with sterile saline and inspection was made that showed the clips in good position. The specimen was removed using Endo-Catch. The abdomen was desufflated. The umbilical fascia was closed with 0 Vicryl in a [id number] fashion under direct visualization. Skin incisions were irrigated and closed with 4-0 Monocryl. 30 ml of 0.25% bupivacaine was infiltrated into the subcutaneous tissue of the incisions. The wounds were sealed with Dermabond. Patient emerged from anesthesia was extubated and transferred to recovery in stable condition. The sponge and instrument count at the end of the operation was correct. Complications: none Post-operative Condition: stable Disposition: Acute Care
--- NOTE | 2020-06-26 11:37 | CM.DANOTE ---
DCP/Assessment: Reviewed chart. Patient is a 70yr old female admitted to [facility] with chest pain. PCP is Dr. Harris. Primary payor is 1)Medicare 2)[employer]. Patient off floor for gall bladder surgery at time of visit. Patient's spouse/Jarred in room. Per spouse, patient is I in all ADL's. Current plan is for patient to d/c home with supportive spouse when medically stable. Unclear if this will be today or tomorrow 06-27-20. P: Home when stable. CM team to continue to [facility]. RAKESH Verde Discharge Planning/Care Management CM Discharge Assessment Start: 06/26/20 11:33 Freq: Status: Active Protocol: Document 06/26/20 11:33 KJS (Rec: 06/26/20 11:37 KJS [id number]) Discharge Planning Assessment Assigned Client Insights Consultant RAKESH Verde Contact Information Jarred Gallardo (spouse) # Advance Directives? No History Provided By Family Member,Medical Record Prior Living Arrangements House Household Members spouse Type of transporation used prior to Drives own vehicle admit Independent with ADL's Yes Is patient alert and oriented? Yes Caregiver for Another No Barriers to Discharge No Discharge Plan Home Transportation Arrangement Family to provide transport. Whiteboard Updated in Patient Room with Yes name and ext. # of Client Insights Consultant Review Status In Process Next Review Type Continued Stay Review
[2020-06-26] MEDS: ONDANSETRON 4 MG/2 ML INJ IV (11:53)
[2020-06-26] MEDS: TRAMADOL 50 MG TABLET 100 MG PO (11:53)
--- NOTE | 2020-06-26 12:43 | PC.NURSE ---
Pt back to room from OR/PACU. Awake and appropriate but still a bit drowsy at times.. O2 90% RA-placed Pt on 2L O2. Pt states currently pain has decreased to 2/10. Denies nausea but states she does not feel well enough to eat at this time. States she would just like to rest for a bit. Spouse at the bedside. Pt agrees to call for assistance as needed.
[2020-06-26] MEDS: ONDANSETRON 4 MG ODT SL (14:53)
== END 2020-06-26 15:30 | disposition home or self-care (01) ==
LOC: ED 20:32 → AC 21:34
PROVIDERS: Admitting Provider Surgery; Emergency Provider Emergency Medicine; PCP Family Medicine; Referring Provider Emergency Medicine; Visit Provider Surgery
PROC: 0FT44ZZ Resection of Gallbladder, Percutaneous Endoscopic Approach (ICD-10-PCS; CPT 47562; principal; 2020-06-26 09:00)
DX: K80.00 Calculus of gallbladder with acute cholecystitis without obstruction (principal); R07.9 Chest pain, unspecified; I10 Essential (primary) hypertension; E03.9 Hypothyroidism, unspecified; Z20.822 Contact with and (suspected) exposure to COVID-19
CPT/HCPCS: 47562; 36415; 71045; 76705; 80053; 81003; 81015; 82550; 83690; 84484; 85025; 85379; 85610; 85730; 87086; 87635; 93005; 96361; 96365; 96366; 96375; 96376; 99219; 99283; 99284; C9803; G0378; J1100; J1170; J1885; J2250; J2405; J2543; J2704; J3010

== ENCOUNTER → 2020-07-01 10:43 | Outpatient (CLI) | payer MEDICARE, OTHER, SELFPAY ==
[2020-06-25 22:11] VITALS: BMI 29.2
[2020-07-01 11:18] LABS: Add Manual Diff / Slide Review NO; Basophils Absolute Auto 0 /uL (0-100); Basophils Percent Auto 0.5 % (0-2); Eosinophils Absolute Auto 200 /uL (0-450); Eosinophils Percent Auto 2.1 % (2-4); Hematocrit 43.9 % (36-46); Hemoglobin 14.9 g/dL (12.0-16.0); Lymphocytes Absolute Auto 1300 /uL (1100-4500); Mean Corpuscular HGB Conc 33.9 % (30-36); Mean Corpuscular Hemoglobin 28.8 PG (26-34); Mean Corpuscular Volume 84.9 fL (80-100); Monocytes Absolute Auto 600 /uL (0-900); Monocytes Percent Auto 8.1 % (3-14); Neutrophils Absolute Auto 5800 /uL (1500-7000); Neutrophils Percent Auto 73.3 % (50-75); Platelet Count 304 X10^3/uL (150-400); Red Blood Cell Count 5.17 X10^6/uL (4.0-5.2); Red Cell Distribution Width 15.4 % (11.6-14.8); White Blood Cell Count 7.9 X10^3/uL (4.5-11.0)
[2020-07-01 11:33] LABS: Alanine Aminotransferase 211 IU/L (<35); Albumin 4.3 g/dL (3.5-5.0); Albumin Globulin Ratio 1.3 (1.0-2.8); Alkaline Phosphatase 181 U/L (38-126); Aspartate Aminotransferase 48 IU/L (14-36); BUN Creatinine Ratio 13.5 (6-22); Bilirubin Total 0.9 mg/dL (0.2-1.3); Blood Urea Nitrogen 10 mg/dL (7-17); Calcium 9.7 mg/dL (8.4-10.2); Carbon Dioxide 28 mmol/L (22-32); Chloride 103 mmol/L (98-107); Estimated Glomerular Filt Rate > 60.0 mL/min (>60); Globulin 3.3 g/dL (1.7-4.1); Glucose 134 mg/dL (80-110); HEMOLYSIS < 15 (0-50); Potassium 3.2 mmol/L (3.4-5.1); Sodium 136 mmol/L (137-145); Total Protein 7.6 g/dL (6.3-8.2)
== END ==
PROVIDERS: PCP Family Medicine; Referring Provider Surgery; Visit Provider Surgery
DX: R10.9 Unspecified abdominal pain (principal)
CPT/HCPCS: 36415; 80053; 85025

== ENCOUNTER → 2021-01-29 16:39 | Outpatient (CLI) | payer MEDICARE, OTHER, SELFPAY ==
[2020-07-10 10:42] VITALS: BMI 29.2
--- NOTE | 2021-01-29 | DI.MG.S_ITS ---
BILATERAL DIGITAL SCREENING MAMMOGRAM 3D/2D WITH CAD: 01/29/2021 CLINICAL: Routine screening. Comparison is made to exams dated: 01/18/2020 mammogram, 01/03/2019 mammogram, and 02/16/2017 mammogram - [facility]. There are scattered fibroglandular elements in both breasts. Current study was also evaluated with a Computer Aided Detection (CAD) system. There are benign vascular calcifications in both breasts. No significant masses, calcifications, or other findings are seen in either breast. There has been no significant interval change. IMPRESSION: BENIGN There is no mammographic evidence of malignancy. A 1 year screening mammogram is recommended. This exam was interpreted at Station ID: [id number]. NOTE: For mammograms, a report in lay terms will be sent to the patient. Approximately 15% of breast malignancies will not be visualized mammographically. In the management of a palpable breast mass, a negative mammogram must not discourage biopsy of a clinically suspicious lesion. Electronically Signed By: Jero Valerio acr/penrad:01/29/2021 17:03:32 letter sent: Normal Exam ACR BI-RADS Category 2: Benign Finding(s) 3342F
== END ==
PROVIDERS: PCP Family Medicine; Referring Provider Family Medicine; Visit Provider Family Medicine
DX: Z12.31 Encounter for screening mammogram for malignant neoplasm of breast (principal)
CPT/HCPCS: 77063; 77067

== ENCOUNTER → 2021-03-08 08:04 | Outpatient (CLI) | payer MEDICARE, OTHER, SELFPAY ==
[2020-07-10 10:42] VITALS: BMI 29.2
[2021-03-08 08:57] LABS: Add Manual Diff / Slide Review NO; Basophils Absolute Auto 0 /uL (0-100); Basophils Percent Auto 0.3 % (0-2); Eosinophils Absolute Auto 200 /uL (0-450); Eosinophils Percent Auto 2.6 % (2-4); Hematocrit 41.4 % (36-46); Hemoglobin 13.9 g/dL (12.0-16.0); Lymphocytes Absolute Auto 1300 /uL (1100-4500); Lymphocytes Percent Auto 22.5 % (25-40); Mean Corpuscular HGB Conc 33.5 % (30-36); Mean Corpuscular Hemoglobin 28.5 PG (26-34); Mean Corpuscular Volume 85.3 fL (80-100); Monocytes Absolute Auto 500 /uL (0-900); Monocytes Percent Auto 8.7 % (3-14); Neutrophils Absolute Auto 3900 /uL (1500-7000); Neutrophils Percent Auto 65.9 % (50-75); Platelet Count 246 X10^3/uL (150-400); Red Blood Cell Count 4.86 X10^6/uL (4.0-5.2); Red Cell Distribution Width 15.2 % (11.6-14.8); White Blood Cell Count 5.9 X10^3/uL (4.5-11.0)
[2021-03-08 09:06] LABS: Alanine Aminotransferase 45 IU/L (<35); Albumin 4.3 g/dL (3.5-5.0); Albumin Globulin Ratio 1.6 (1.0-2.8); Alkaline Phosphatase 76 U/L (38-126); Aspartate Aminotransferase 35 IU/L (14-36); BUN Creatinine Ratio 20.8 (6-22); Bilirubin Total 0.6 mg/dL (0.2-1.3); Blood Urea Nitrogen 15 mg/dL (7-17); Calcium 9.6 mg/dL (8.4-10.2); Carbon Dioxide 25 mmol/L (22-32); Chloride 104 mmol/L (98-107); Cholesterol 239 mg/dL (140-199); Estimated Glomerular Filt Rate > 60.0 mL/min (>60); Globulin 2.7 g/dL (1.7-4.1); Glucose 95 mg/dL (80-110); HDL Cholesterol 62 mg/dL (40-60); HEMOLYSIS < 15 (0-50); LDL Cholesterol Calculated 155 mg/dL (<100); Sodium 138 mmol/L (137-145); Triglycerides 110 mg/dL (35-150)
== END ==
PROVIDERS: PCP Family Medicine; Referring Provider Family Medicine; Visit Provider Family Medicine
DX: E78.5 Hyperlipidemia, unspecified (principal); R74.01 Elevation of levels of liver transaminase levels; E03.9 Hypothyroidism, unspecified; Z86.2 Personal history of diseases of the blood and blood-forming organs and certain disorders involving the immune mechanism
CPT/HCPCS: 36415; 80053; 80061; 84443; 85025

== ENCOUNTER → 2021-04-21 07:10 | Outpatient (CLI) | payer MEDICARE, OTHER, SELFPAY ==
[2020-07-10 10:42] VITALS: BMI 29.2
--- NOTE | 2021-04-21 07:11 | DI.US.S_ITS ---
PROCEDURE: US ABDOMEN LIMITED INDICATIONS: RUQ PAIN TECHNIQUE: Real-time scanning was performed of the abdominal, with image documentation. COMPARISON: [facility], CT, CT ABDOMEN PELVIS WO CON, 10/20/2019, 8:01. [facility], US, US ABDOMEN LIMITED, 06/25/2020, 19:34. FINDINGS: Liver: Normal size. Increased in echogenicity. Gallbladder: Surgically absent. Biliary ducts: Intrahepatic bile ducts are non-dilated. Extrahepatic bile duct caliber measures 7 mm. Normal is 6-7 mm or less in diameter, or 10 mm or less post-cholecystectomy. Pancreas: Visualized portions of the pancreas are sonographically normal. IMPRESSION: 1. Increased hepatic echogenicity most consistent with hepatic steatosis. Other forms of hepatocellular disease could have similar appearance. 2. Gallbladder is absent. 3. CBD is within normal limits. Dictated by: Mehrdad Wang M.D. on 04/21/2021 at 8:12 Approved by: Mehrdad Wang M.D. on 04/21/2021 at 8:14
== END ==
PROVIDERS: PCP Family Medicine; Referring Provider Family Medicine; Visit Provider Family Medicine
DX: R10.11 Right upper quadrant pain (principal); Z90.49 Acquired absence of other specified parts of digestive tract
CPT/HCPCS: 76705

== ENCOUNTER → 2022-01-30 07:49 | Outpatient (CLI) | payer MEDICARE, OTHER, SELFPAY ==
[2020-07-10 10:42] VITALS: BMI 29.2
--- NOTE | 2022-01-30 07:52 | DI.MG.S_ITS ---
BILATERAL DIGITAL SCREENING MAMMOGRAM 3D/2D WITH CAD: 01/30/2022 CLINICAL: Routine screening. Comparison is made to exams dated: 01/29/2021 mammogram, 01/18/2020 mammogram, 01/03/2019 mammogram, and 03/04/2017 mammogram - [facility]. Both breasts are heterogeneously dense, which may obscure small masses (category c / 51-75% glandular tissue). Current study was also evaluated with a Computer Aided Detection (CAD) system. There are benign vascular calcifications in both breasts. No significant masses, calcifications, or other findings are seen in either breast. There has been no significant interval change. IMPRESSION: BENIGN There is no mammographic evidence of malignancy. A 1 year screening mammogram is recommended. Based on the Tyrer Cuzick model (a risk assessment model) the patient's lifetime risk is 5.2% and her 10 year risk is 3.3%. According to the ACR, ACS, and NCCN guidelines, an annual breast MRI exam along with mammogram is recommended if the patient's lifetime risk is 20% or greater. This exam was interpreted at Station ID: [id number]. NOTE: For mammograms, a report in lay terms will be sent to the patient. Approximately 15% of breast malignancies will not be visualized mammographically. In the management of a palpable breast mass, a negative mammogram must not discourage biopsy of a clinically suspicious lesion. Electronically Signed By: Mehrdad pelletier/contreras:01/30/2022 10:33:38 letter sent: Normal Exam ACR BI-RADS Category 2: Benign Finding(s) 3342F
== END ==
PROVIDERS: PCP Family Medicine; Referring Provider Family Medicine; Visit Provider Family Medicine
DX: Z12.31 Encounter for screening mammogram for malignant neoplasm of breast (principal)
CPT/HCPCS: 77063; 77067

== ENCOUNTER → 2022-03-16 07:00 | Outpatient (CLI) | payer MEDICARE, OTHER, SELFPAY ==
[2020-07-10 10:42] VITALS: BMI 29.2
[2022-03-16 09:42] LABS: Alanine Aminotransferase 49 IU/L (<35); Albumin 4.1 g/dL (3.5-5.0); Albumin Globulin Ratio 1.4 (1.0-2.8); Alkaline Phosphatase 80 U/L (38-126); Aspartate Aminotransferase 42 IU/L (14-36); BUN Creatinine Ratio 15.1 (6-22); Bilirubin Total 0.5 mg/dL (0.2-1.3); Blood Urea Nitrogen 11 mg/dL (7-17); Carbon Dioxide 28 mmol/L (22-32); Chloride 102 mmol/L (98-107); Estimated Glomerular Filt Rate > 60 mL/min (>60); Globulin 2.9 g/dL (1.7-4.1); Glucose 94 mg/dL (80-110); HEMOLYSIS < 15 (0-50); Potassium 4.2 mmol/L (3.4-5.1); Sodium 138 mmol/L (137-145)
[2022-03-16 10:18] LABS: TSH w/ Reflex to FT4 2.85 uIU/mL (0.47-4.68)
== END ==
PROVIDERS: PCP Family Medicine; Referring Provider Family Medicine; Visit Provider Family Medicine
DX: E03.9 Hypothyroidism, unspecified (principal)
CPT/HCPCS: 36415; 80053; 84443

== ENCOUNTER → 2022-03-24 09:23 | Outpatient (CLI) | payer MEDICARE, OTHER, SELFPAY ==
[2020-07-10 10:42] VITALS: BMI 29.2
--- NOTE | 2022-03-24 09:25 | DI.RAD.S_ITS ---
PROCEDURE: XR SHOULDER RT MIN 2V INDICATIONS: right shoulder pain TECHNIQUE: 3 views of the shoulder were acquired. COMPARISON: None. FINDINGS: Bones: No fractures or dislocations. No suspicious bony lesions. Visualized ribs appear intact. Soft tissues: No suspicious soft tissue calcifications. IMPRESSION: No definite radiographic abnormality. If pain persists with conservative management consider cross-sectional imaging with MRI or CT. Dictated by: Jero Valerio M.D. on 03/24/2022 at 11:23 Approved by: Jero Valerio M.D. on 03/24/2022 at 11:24
== END ==
PROVIDERS: PCP Family Medicine; Referring Provider Family Medicine; Visit Provider Family Medicine
DX: M25.511 Pain in right shoulder (principal)
CPT/HCPCS: 73030

== ENCOUNTER → 2023-02-09 07:44 | Outpatient (CLI) | payer MEDICARE, OTHER, SELFPAY ==
[2020-07-10 10:42] VITALS: BMI 29.2
--- NOTE | 2023-02-09 | DI.MG.S_ITS ---
BILATERAL DIGITAL SCREENING MAMMOGRAM 3D/2D WITH CAD: 02/09/2023 CLINICAL: Routine screening. Comparison is made to exams dated: 01/30/2022 mammogram, 01/29/2021 mammogram, 01/18/2020 mammogram, and 01/03/2019 mammogram - [facility]. Both breasts are heterogeneously dense, which may obscure small masses (category c / 51-75% glandular tissue). Current study was also evaluated with a Computer Aided Detection (CAD) system. There are benign vascular calcifications in both breasts. No significant masses, calcifications, or other findings are seen in either breast. There has been no significant interval change. IMPRESSION: BENIGN There is no mammographic evidence of malignancy. A 1 year screening mammogram is recommended. Based on the Tyrer Cuzick model (a risk assessment model) the patient's lifetime risk is 4.9% and her 10 year risk is 3.3%. According to the ACR, ACS, and NCCN guidelines, an annual breast MRI exam along with mammogram is recommended if the patient's lifetime risk is 20% or greater. This exam was interpreted at Station ID: [id number]. NOTE: For mammograms, a report in lay terms will be sent to the patient. Approximately 15% of breast malignancies will not be visualized mammographically. In the management of a palpable breast mass, a negative mammogram must not discourage biopsy of a clinically suspicious lesion. Electronically Signed By: Mehrdad pelletier/contreras:02/09/2023 10:18:05 letter sent: Normal Exam ACR BI-RADS Category 2: Benign Finding(s) 3342F
== END ==
PROVIDERS: PCP Nurse Practitioner Family; Referring Provider Nurse Practitioner Family; Visit Provider Nurse Practitioner Family
DX: Z12.31 Encounter for screening mammogram for malignant neoplasm of breast (principal)
CPT/HCPCS: 77063; 77067

== ENCOUNTER → 2023-08-17 17:09 | Outpatient (CLI) | payer MEDICARE, OTHER, SELFPAY ==
[2020-07-10 10:42] VITALS: BMI 29.2
[2023-08-17 17:42] LABS: Appearance Urine UA CLEAR; Bilirubin Urine UA NEGATIVE (NEGATIVE); Color Urine UA YELLOW; Glucose Urine UA NEGATIVE (Negative); Ketones Urine UA NEGATIVE (NEGATIVE); Leukocyte Esterase Urine UA 2+ (NEGATIVE); Nitrite Urine UA NEGATIVE (Negative); Occult Blood Urine UA 1+ (Negative); Protein Urine UA NEGATIVE (Negative); Specific Gravity Urine UA 1.015 (1.000-1.035); Urobilinogen Urine UA 0.2 E.U./dL (0.2)
[2023-08-17 18:49] LABS: pH Urine UA 5.5 (4.5-8.0)
[2023-08-17 18:50] LABS: Bacteria Urine Few (2-10); RBC Urine 1-5/HPF (0-5/HPF); Squamous Epithelial Cell Urine 1-5 /HPF (0-5/HPF); Urine Volume Low Vol <10mL (spun); WBC Urine 5-10/HPF (0-5/HPF)
== END ==
PROVIDERS: PCP Nurse Practitioner Family; Visit Provider Physician Assistant Surgical
DX: R35.0 Frequency of micturition (principal)
CPT/HCPCS: 81001; 87086

== ENCOUNTER → 2024-02-11 07:51 | Outpatient (CLI) | payer MEDICARE, OTHER, SELFPAY ==
[2020-07-10 10:42] VITALS: BMI 29.2
--- NOTE | 2024-02-11 07:52 | DI.MG.S_ITS ---
BILATERAL DIGITAL SCREENING MAMMOGRAM 3D/2D WITH CAD: 02/11/2024 CLINICAL: Routine screening. Comparison is made to exams dated: 02/09/2023 mammogram, 01/30/2022 mammogram, 01/29/2021 mammogram, 01/18/2020 mammogram, 01/03/2019 mammogram, and 03/04/2017 mammogram - [facility]. The breasts are heterogeneously dense, which may obscure small masses (category c / 51-75% glandular tissue). Current study was also evaluated with a Computer Aided Detection (CAD) system. There are benign vascular calcifications in both breasts. No significant masses, calcifications, or other findings are seen in either breast. There has been no significant interval change. IMPRESSION: BENIGN There is no mammographic evidence of malignancy. A 1 year screening mammogram is recommended. Based on the Tyrer Cuzick model (a risk assessment model) the patient's lifetime risk is 4.6% and her 10 year risk is 3.4%. According to the ACR, ACS, and NCCN guidelines, an annual breast MRI exam along with mammogram is recommended if the patient's lifetime risk is 20% or greater. This exam was interpreted at Station ID: [id number]. NOTE: For mammograms, a report in lay terms will be sent to the patient. Approximately 15% of breast malignancies will not be visualized mammographically. In the management of a palpable breast mass, a negative mammogram must not discourage biopsy of a clinically suspicious lesion. Electronically Signed By: Mehrdad pelletier/contreras:02/11/2024 10:26:05 letter sent: Normal Exam ACR BI-RADS Category 2: Benign
== END ==
PROVIDERS: PCP Nurse Practitioner Family; Referring Provider Nurse Practitioner Family; Visit Provider Nurse Practitioner Family
DX: Z12.31 Encounter for screening mammogram for malignant neoplasm of breast (principal); R92.333 Mammographic heterogeneous density, bilateral breasts
CPT/HCPCS: 77063; 77067

== ENCOUNTER → 2025-02-14 16:37 | Outpatient (CLI) | payer MEDICARE, OTHER, SELFPAY ==
[2020-07-10 10:42] VITALS: BMI 29.2
--- NOTE | 2025-02-14 16:42 | DI.MG.S_ITS ---
MM screening mammo BI: 02/14/2025. BI-RADS: 1 CLINICAL: 74-year old female for bilateral screening mammogram. Tyrer-Cuzick lifetime risk of 2.8%. No personal or first-degree family history of breast cancer. PRIOR EXAMS 02/11/2024, 02/09/2023, 01/30/2022, 01/29/2021, MAMMOGRAPHY TECHNIQUE: 2D and 3D (tomosynthesis) digital mammographic views obtained, with additional images as needed for full coverage. Current study was also evaluated with a Computer Aided Detection (CAD) system. DENSITY C. The breasts are heterogeneously dense, which may obscure small masses. MAMMOGRAPHY FINDINGS Bilateral: No suspicious mass, asymmetry, microcalcification, or other abnormality seen. No significant change from comparison. IMPRESSION: * No evidence of malignancy. RECOMMENDATIONS Bilateral * Annual screening mammography. OVERALL ASSESSMENT CATEGORY BI-RADS-1: Negative. The [employer] recommends annual screening mammography beginning at age 40 for women with average risk of breast cancer. ELECTRONICALLY SIGNED: Pari Mario M.D. on 02/16/2025 at 10:38:37 AM PT Interpreting Station ID: [id number]
== END ==
PROVIDERS: PCP Nurse Practitioner Family; Referring Provider Nurse Practitioner Family; Visit Provider Nurse Practitioner Family
DX: Z12.31 Encounter for screening mammogram for malignant neoplasm of breast (principal); R92.333 Mammographic heterogeneous density, bilateral breasts
CPT/HCPCS: 77063; 77067